=== PATIENT | female | born 1935 | race Caucasian/White ===

== ENCOUNTER → 2016-10-21 | Outpatient (REF) | payer MEDICARE, OTHER | LOC: M LABDRAW1 11:55 | PROVIDERS: ATTEND Internal Medicine Rheumatology | DX: E55.9 Vitamin D deficiency, unspecified (principal) ==

== ENCOUNTER → 2016-12-02 | Outpatient (CLI) | payer MEDICARE, OTHER ==
[~2016-12-02] MED LIST: ASPIRIN 81 MG CHEW TABLET As Ordered ONE; CLOPIDOGREL 75 MG TAB As Ordered ONE; MORPHINE 2 MG/ML 1ML SYRINGE As Ordered ONE; NITROGLYCERIN 0.4 MG SUBL TABLET As Ordered ONE; ONDANSETRON 4MG/2ML VIAL (J2405) As Ordered ONE
--- NOTE | 2016-12-02 15:47 | REP ---
WHOLE-BODY BONE SCAN: 12/02/2016. Clinical history: Ankle and rib pain for 2 months. Fell 4 months ago. Prior left knee replacement 2004. Known osteoarthritis. Technique: The patient received a bolus of 21.4 mCi technetium 99m MDP via an IV. Delayed whole body anterior and posterior scans with anterior and posterior oblique pelvic and chest images with lateral images of the calvarium and cervical region as well as knees and feet. Comparison: Chest x-ray 12/01/2016, left rib series 10/21/2016, left ankle 10/21/2016. There is an S-shaped scoliotic curvature dextroconvex in the mid thoracic spine, dextrorotatory in the lower thoracic/upper lumbar region. There are posterior element focal areas of uptake in multiple thoracic vertebral levels as well as the lumbar spine representing degenerative disc disease. There is increased uptake in the AC and glenohumeral joints in a symmetric fashion as well as the sternoclavicular joints. I do not see abnormal uptake in the sternum or sternomanubrial joint. Remainder of the visible clavicles were unremarkable. There is no anterior/posterior rib uptake, although there is uptake at multiple rib articular margins. Uptake seen in the cervical region representing degenerative change. The calvarium and skull base are grossly intact. There is uptake in the paranasal sinuses representing chronic sinus disease. Long bones without abnormal uptake except for the left ankle in the tibial plafond, although there was no correlation on the plain films for trauma or destructive lesion. The hips and SI joints without fracture. Pelvic ring intact. Kidneys show activity as does the bladder. Impression: 1. There is a pattern of uptake consistent with degenerative change in multiple joints and the spine including the right knee, left ankle, shoulders, sternoclavicular and AC joints. There is spine uptake in the cervical and thoracolumbar spine posterior elements from degenerative facet change and disc disease noted more anteriorly. 2. No compelling scintigraphic evidence for bony metastatic disease. No specific focal uptake in the ribs to suggest fracture or destructive lesion. Signed by Federico Gould MD 12/02/2016 05:32 P
== END ==
LOC: M RAD 10:33
PROVIDERS: ATTEND Internal Medicine Rheumatology
DX: M25.572 Pain in left ankle and joints of left foot (principal); R07.89 Other chest pain
CPT/HCPCS: 78306; A9503; J2405

== ENCOUNTER → 2017-05-03 | Outpatient (REF) | payer MEDICARE, OTHER ==
[2017-05-03 17:59] LABS: BASO % 0.4 % (0.0-1.0); EOS # 0.3 K/mm3 (0.0-0.50); EOS % 2.8 % (0.0-3.0); LARGE UNSTAINED CELL # 0.1 K/mm3 (0.0-0.4); LYMPH # 1.7 K/mm3 (1.5-4.5); LYMPH % 14.1 % (24.0-44.0); MEAN CORPUSCULAR HEMOGLOBIN 30.1 pg (27.0-33.0); MEAN CORPUSCULAR HGB CONC 33.9 g/dl (32.0-36.5); MEAN CORPUSCULAR VOLUME 88.8 fl (80.0-96.0); MONO # 0.6 K/mm3 (0.0-0.8); MONO % 4.9 % (0.0-5.0); NEUTROPHILS # 8.7 K/mm3 (1.8-7.7); NEUTROPHILS % 76.8 % (36.0-66.0); PLATELET COUNT, AUTOMATED 337 k/mm3 (150-450); RED CELL DISTRIBUTION WIDTH 13.4 % (11.5-14.5); WHITE BLOOD COUNT 11.4 K/mm3 (4.0-10.0)
[2017-05-03 18:42] LABS: ALBUMIN 3.3 GM/DL (3.2-5.2); ALBUMIN/GLOBULIN RATIO 0.83 (1.00-1.93); BILIRUBIN,TOTAL 0.5 MG/DL (0.2-1.0); CALCIUM LEVEL 9.3 MG/DL (8.8-10.2); CREATININE FOR GFR 1.01 MG/DL (0.55-1.02); GLOMERULAR FILTRATION RATE 56.3 (>39); POTASSIUM SERUM 3.6 MEQ/L (3.5-5.1); TOTAL PROTEIN 7.3 GM/DL (6.4-8.2)
== END ==
LOC: M LABDRAW1 16:08
PROVIDERS: ATTEND Internal Medicine Rheumatology
DX: M85.89 Other specified disorders of bone density and structure, multiple sites (principal); Z79.899 Other long term (current) drug therapy; E55.9 Vitamin D deficiency, unspecified

== ENCOUNTER 2017-08-20 16:38 | Emergency (ER) | payer MEDICARE, OTHER ==
[~2017-08-20] VITALS: Ht 167.6 cm; Wt 65.9 kg
[2017-08-20] MEDS ORDERED: Propanolol PO (16:54)
[2017-08-20] MEDS ORDERED: FLUTISP (16:54)
[2017-08-20] MEDS ORDERED: NEXI40CA PO (16:54)
[2017-08-20] MEDS ORDERED: ZOLO100T PO (16:54)
[2017-08-20] MEDS ORDERED: VITA200016 PO (16:54)
[2017-08-20] MEDS ORDERED: MAGN400C3 PO (16:54)
[2017-08-20] MEDS ORDERED: NEUR100C PO (16:54)
[2017-08-20] MEDS ORDERED: FISH100049 PO (16:54)
[2017-08-20] MEDS ORDERED: REST0.05 OU (16:54)
--- NOTE | 2017-08-20 17:30 | REPUSA ---
CT of the facial bones without contrast Clinical history: Pain, injury. Technique: Multiple axial CT images were obtained through the facial bones and paranasal sinuses util izing 3 mm axial slices without administration of contrast. Coronal and sagittal reconstructions were also obtained. Findings: The visualized paranasal sinuses are clear. The osteomeatal complexes are patent bilaterall y. The nasal septum is midline. The visualized mastoid air cells are clear. The osseous structures do not demonstrate any acute abnormalities. The superficial soft tissues are within normal limits. Impression: Unremarkable CT examination of the facial bones and paranasal sinuses.
[2017-08-20 17:54] VITALS: BP 149/71
== END 2017-08-20 17:55 | disposition home or self-care (01) ==
LOC: M ED 16:38
DX: S01.511A Laceration without foreign body of lip, initial encounter (principal); S00.81XA Abrasion of other part of head, initial encounter; S00.83XA Contusion of other part of head, initial encounter; W01.0XXA Fall on same level from slipping, tripping and stumbling without subsequent striking against object, initial encounter; Y92.481 Parking lot as the place of occurrence of the external cause; Y93.89 Activity, other specified; Y99.8 Other external cause status; I10 Essential (primary) hypertension; G25.0 Essential tremor; Z79.899 Other long term (current) drug therapy; Z88.5 Allergy status to narcotic agent; Z88.8 Allergy status to other drugs, medicaments and biological substances

== ENCOUNTER → 2017-08-22 | Outpatient (CLI) | payer MEDICARE, OTHER ==
[~2017-08-22] MED LIST changes: -ASPIRIN 81 MG CHEW TABLET As Ordered ONE; -CLOPIDOGREL 75 MG TAB As Ordered ONE; +FISH100049 PO; +FLUTISP; +MAGN400C3 PO; -MORPHINE 2 MG/ML 1ML SYRINGE As Ordered ONE; +NEUR100C PO; +NEXI40CA PO; -NITROGLYCERIN 0.4 MG SUBL TABLET As Ordered ONE; -ONDANSETRON 4MG/2ML VIAL (J2405) As Ordered ONE; +Propanolol PO; +REST0.05 OU; +VITA200016 PO; +ZOLO100T PO
--- NOTE | 2017-08-22 11:08 | REPMRS ---
Patient History The patient states she has not had a clinical breast exam in over a year. Family history of prostate cancer in brother at age 50 or over. Digital Woman Screen Mammo: August 22, 2017 - Exam #: [id number] Bilateral CC and MLO view(s) were taken. Technologist: Lexus Vera, Technologist Prior study comparison: July 07, 2016, digital woman screen mammo performed at [facility] to [facility]. April 29, 2015, digital woman screen mammo performed at [facility] to [facility]. FINDINGS: There are scattered fibroglandular densities. There has been no change in the appearance of the mammogram from the prior studies. There is a mild amount of residual fibroglandular tissue which is fairly symmetric. There is no interval development of dominant mass, architectural distortion, or clustered microcalcification suggestive of malignancy. ASSESSMENT: BI-RADS/ACR category 1 mammogram. Negative. Recommendation Routine screening mammogram in 1 year (for women over age 40). This mammogram was interpreted with the aid of an FDA-approved computer-aided dectection system. Electronically Signed By: Sav Negrete MD 08/22/17 [id number]
== END ==
LOC: M WHC 10:35
PROVIDERS: ATTEND Family Medicine
DX: Z12.31 Encounter for screening mammogram for malignant neoplasm of breast (principal)

== ENCOUNTER 2017-10-02 10:02 | Emergency (ER) | payer MEDICARE, OTHER ==
[2017-10-02 11:18] LABS: BASO # 0.1 10^3/uL (0.0-0.2); BASO % 0.3 % (0.0-1.0); IMMATURE GRANULOCYTE # 0.2 10^3/uL (0-0); IMMATURE GRANULOCYTE % 0.9 % (0-0); LYMPH # 0.9 10^3/uL (1.5-4.5); MEAN CORPUSCULAR HEMOGLOBIN 30.4 pg (27.0-33.0); MEAN CORPUSCULAR HGB CONC 35.1 g/dl (32.0-36.5); MEAN CORPUSCULAR VOLUME 86.4 fl (80.0-96.0); MONO # 1.4 10^3/uL (0.0-0.8); MONO % 6.1 % (0.0-5.0); NEUTROPHILS % 88.7 % (36.0-66.0); PLATELET COUNT, AUTOMATED 243 10^3/uL (150-450); RED CELL DISTRIBUTION WIDTH 13.5 % (11.5-14.5); WHITE BLOOD COUNT 22.5 10^3/uL (4.0-10.0)
[2017-10-02 11:28] LABS: INR 1.03
[2017-10-02 11:38] LABS: ANION GAP 9 MEQ/L (8-16); BLOOD UREA NITROGEN 34 MG/DL (7-18); CALCIUM LEVEL 9.2 MG/DL (8.8-10.2); CARBON DIOXIDE LEVEL 29 MEQ/L (21-32); CHLORIDE LEVEL 99 MEQ/L (98-107); CREATININE FOR GFR 1.17 MG/DL (0.55-1.02); GLOMERULAR FILTRATION RATE 47.5 (>39); GLUCOSE, FASTING 116 MG/DL (83-110); POTASSIUM SERUM 3.4 MEQ/L (3.5-5.1); SODIUM LEVEL 137 MEQ/L (136-145)
[2017-10-02] MEDS: POTASSIUM CHLORIDE 10 MEQ SR TABLET PO (12:41)
[2017-10-02 12:50] LABS: FREE T4 1.05 NG/DL (0.76-1.46); MAGNESIUM LEVEL 2.3 MG/DL (1.8-2.4); PHOSPHORUS LEVEL 2.9 MG/DL (2.5-4.9)
[2017-10-02 13:33] LABS: KETONE, URINE AUTO RFX TRACE mg/dL (NEGATIVE); MUCUS, URINE RFX SMALL (NEGATIVE); RBC, URINE AUTO RFX 19 /HPF (0-3); SPECIFIC GRAVITY UR AUTO RFX 1.015 (1.002-1.035); SQUAM EPITHELIAL CELL UR AURFX 0 /HPF (0-6); TRANSITIONAL EPITHELIAL AU RFX 1 /HPF
[2017-10-02 13:34] LABS: LEUKOCYTE ESTERASE UR AUTO RFX 3+ (NEGATIVE); NITRITE, URINE AUTO RFX POSITIVE (NEGATIVE); WBC, URINE AUTO RFX TNTC /HPF (0-3)
[2017-10-02] MEDS: CEFTRIAXONE SOD 1 GM in APPROPRIATE DILUENT 1 EA IV (14:38)
== END 2017-10-02 15:11 | disposition home or self-care (01) ==
LOC: M ED 10:02
DX: N39.0 Urinary tract infection, site not specified (principal); I10 Essential (primary) hypertension; G62.9 Polyneuropathy, unspecified; K21.9 Gastro-esophageal reflux disease without esophagitis; R07.81 Pleurodynia
CPT/HCPCS: 71010

== ENCOUNTER 2017-10-03 19:18 | Emergency (ER) | payer MEDICARE, OTHER ==
[2017-10-03] MEDS: NS 500 ML IV ×2 (20:00→21:00)
[2017-10-03 20:29] LABS: BASO % 0.3 % (0.0-1.0); EOS % 0.1 % (0.0-3.0); IMMATURE GRANULOCYTE # 0.1 10^3/uL (0-0); IMMATURE GRANULOCYTE % 0.4 % (0-0); LYMPH # 0.9 10^3/uL (1.5-4.5); MEAN CORPUSCULAR HEMOGLOBIN 29.7 pg (27.0-33.0); MEAN CORPUSCULAR HGB CONC 34.4 g/dl (32.0-36.5); MEAN CORPUSCULAR VOLUME 86.5 fl (80.0-96.0); MONO # 1.3 10^3/uL (0.0-0.8); MONO % 9.1 % (0.0-5.0); NEUTROPHILS # 12.1 10^3/uL (1.8-7.7); NEUTROPHILS % 84.1 % (36.0-66.0); PLATELET COUNT, AUTOMATED 248 10^3/uL (150-450); RED CELL DISTRIBUTION WIDTH 13.5 % (11.5-14.5); WHITE BLOOD COUNT 14.4 10^3/uL (4.0-10.0)
[2017-10-03 20:55] LABS: ANION GAP 5 MEQ/L (8-16); BLOOD UREA NITROGEN 35 MG/DL (7-18); CALCIUM LEVEL 8.8 MG/DL (8.8-10.2); CARBON DIOXIDE LEVEL 32 MEQ/L (21-32); CHLORIDE LEVEL 97 MEQ/L (98-107); CREATININE FOR GFR 1.23 MG/DL (0.55-1.02); GLOMERULAR FILTRATION RATE 44.8 (>39); GLUCOSE, FASTING 122 MG/DL (83-110); MAGNESIUM LEVEL 2.2 MG/DL (1.8-2.4); SODIUM LEVEL 134 MEQ/L (136-145); T UPTAKE 34 % (30-39); THYROXINE (T4) 7.6 UG/DL (4.5-12.0)
[2017-10-03] MEDS: POTASSIUM CHLORIDE 10 MEQ SR TABLET PO (23:38)
== END 2017-10-04 00:42 | disposition home or self-care (01) ==
LOC: M ED 10-04 00:42
DX: E86.0 Dehydration (principal); N39.0 Urinary tract infection, site not specified; I10 Essential (primary) hypertension; R26.2 Difficulty in walking, not elsewhere classified; M19.90 Unspecified osteoarthritis, unspecified site; G62.9 Polyneuropathy, unspecified; K21.9 Gastro-esophageal reflux disease without esophagitis; Z79.899 Other long term (current) drug therapy; Z79.2 Long term (current) use of antibiotics; Z79.51 Long term (current) use of inhaled steroids; Z88.8 Allergy status to other drugs, medicaments and biological substances; Z88.5 Allergy status to narcotic agent
CPT/HCPCS: 82550

== ENCOUNTER → 2017-10-25 | Outpatient (REF) | payer MEDICARE, OTHER | LOC: M LAB REF 12:56 | DX: N10 Acute pyelonephritis (principal) | CPT/HCPCS: 87086 ==

== ENCOUNTER → 2017-11-23 | Outpatient (REF) | payer MEDICARE, OTHER | LOC: M LAB REF 15:12 | DX: N39.0 Urinary tract infection, site not specified (principal) | CPT/HCPCS: 87186 ==

== ENCOUNTER → 2019-03-16 | Outpatient (CLI) | payer MEDICARE, OTHER ==
[~2019-03-16] MED LIST changes: +HYDR25TAB; +KEFL500C17 PO
--- NOTE | 2019-03-16 11:39 | REPMRS ---
Patient History The patient states she has not had a clinical breast exam in over a year. Family history of prostate cancer(twice) at age 50 or over in brother. 3D TOMOSYNTHESIS WAS PERFORMED. Digital Woman Screen Mammo: March 16, 2019 - Exam #: [id number] Bilateral CC and MLO view(s) were taken. Technologist: Lexus Vera, Technologist Prior study comparison: August 22, 2017, digital woman screen mammo performed at [facility]. July 07, 2016, digital woman screen mammo performed at [facility]. FINDINGS: The breast tissue is heterogeneously dense. This may lower the sensitivity of mammography. There has been no change in the appearance of the mammogram from the prior studies. There is a moderate amount of residual fibroglandular tissue which is fairly symmetric. There is no interval development of dominant mass, areas of architectural distortion, or clustered microcalcification typical of malignancy. Assessment: BI-RADS/ACR category 1 mammogram. Negative Mammogram. Recommendation Routine screening mammogram in 1 year (for women over age 40). This mammogram was interpreted with the aid of an FDA-approved computer-aided dectection system. Electronically Signed By: Sav Negrete MD 03/16/19 [id number]
== END ==
LOC: M WHC 08:59
PROVIDERS: ATTEND Family Medicine
DX: Z12.31 Encounter for screening mammogram for malignant neoplasm of breast (principal)

== ENCOUNTER → 2019-04-10 | Outpatient (CLI) | payer MEDICARE, OTHER ==
[~2019-04-10] MED LIST changes: +AMOX500C PO; +DORZ2SOL5 OU; +DULO1CAP5 PO; +FERR325T3 PO; +FISH1000 PO; +HYDR-3713 PO; -HYDR25TAB; +HYDR25TAB PO; +MAGN400C2 PO; +MULTCAP PO; +MYRB50TA PO; +NAPR250T4 PO; +POTA1TAB23 PO; +PREV1.1G TEETH; +RANI150T14 PO; +ROPI0.5T PO; +SOLI5TAB PO; +ULTR50TA8 PO; +XARE10TA PO
== END ==
LOC: M PT 10:07
PROVIDERS: ATTEND Orthopaedic Surgery
DX: M17.11 Unilateral primary osteoarthritis, right knee (principal)

== ENCOUNTER → 2019-04-20 | Outpatient (CLI) | payer MEDICARE, OTHER ==
[~2019-04-20] MED LIST changes: -DORZ2SOL5 OU; -FERR325T3 PO; -HYDR-3713 PO; -POTA1TAB23 PO; -RANI150T14 PO; -SOLI5TAB PO; -ULTR50TA8 PO; -XARE10TA PO
[2019-04-20 08:53] LABS: HEMATOCRIT 39.6 % (36.0-47.0); HEMOGLOBIN 13.2 g/dl (12.0-15.5); MEAN CORPUSCULAR HEMOGLOBIN 30.3 pg (27.0-33.0); MEAN CORPUSCULAR HGB CONC 33.3 g/dl (32.0-36.5); MEAN CORPUSCULAR VOLUME 90.8 fl (80.0-96.0); PLATELET COUNT, AUTOMATED 255 10^3/uL (150-450); RED BLOOD COUNT 4.36 10^6/uL (4.00-5.40); WHITE BLOOD COUNT 6.3 10^3/uL (4.0-10.0)
[2019-04-20 09:03] LABS: INR 0.99; PROTHROMBIN TIME 12.8 SECONDS (11.8-14.0)
[2019-04-20 09:14] LABS: ERYTHROCYTE SEDIMENTATION RATE 22 mm/hr (0-30)
[2019-04-20 09:20] LABS: ALBUMIN 3.8 GM/DL (3.2-5.2); BILIRUBIN,TOTAL 0.7 MG/DL (0.2-1.0); CALCIUM LEVEL 9.4 MG/DL (8.8-10.2); CREATININE FOR GFR 1.03 MG/DL (0.55-1.30); GLOMERULAR FILTRATION RATE 54.7 (>32); POTASSIUM SERUM 3.5 MEQ/L (3.5-5.1); TOTAL PROTEIN 7.2 GM/DL (6.4-8.2)
--- NOTE | 2019-04-20 10:11 | ECGEPIP ---
[facility] Test Date: 2019-04-20 Pat Name: YAMILETH ANSARI Department: Room: - Gender: Female [employer]: [facility] [place] : 1935 Requested By: S[place] [facility] [place]: [id number] Reading MD: Lana Jimenez Measurements Intervals [place] Rate: 67 P: 64 VA: 210 QRS: 68 QRSD: 94 T: 64 QT: 383 QTc: 407 Interpretive Statements SINUS RHYTHM WITH FIRST DEGREE AV BLOCK NSSTTWA STABLE C/W 10/02/17 Electronically Signed on 04-20-2019 10:11:19 EDT by Lana Jimenez
--- NOTE | 2019-04-20 11:15 | REP ---
CHEST X-RAY: Two views. HISTORY: Preop. COMPARISON CHEST X-RAY: October 02, 2017. FINDINGS: There is a moderate S-shaped thoracolumbar rotoscoliotic curve unchanged. The lungs are well inflated and clear. The pleural angles are sharp. Cardiomediastinal silhouette is unremarkable. IMPRESSION: Moderate thoracolumbar scoliosis. Otherwise no acute disease. Electronically Signed by Anupam Mahoney MD 04/20/2019 12:38 P
== END ==
LOC: M LAB 08:17
PROVIDERS: ATTEND Orthopaedic Surgery
DX: Z01.818 Encounter for other preprocedural examination (principal); M17.11 Unilateral primary osteoarthritis, right knee; I44.0 Atrioventricular block, first degree; M41.85 Other forms of scoliosis, thoracolumbar region; G62.9 Polyneuropathy, unspecified; K21.9 Gastro-esophageal reflux disease without esophagitis; R01.1 Cardiac murmur, unspecified; G25.0 Essential tremor

== ENCOUNTER → 2019-05-14 | Outpatient (CLI) | payer MEDICARE, OTHER ==
[~2019-05-14] MED LIST changes: +FERR325T3 PO; +HYDR-3713 PO; +RANI150T14 PO; +ULTR50TA8 PO; +XARE10TA PO
[2019-05-14 11:00] LABS: HEMATOCRIT 32.2 % (36.0-47.0); HEMOGLOBIN 10.6 g/dl (12.0-15.5); MEAN CORPUSCULAR HEMOGLOBIN 29.9 pg (27.0-33.0); MEAN CORPUSCULAR HGB CONC 32.9 g/dl (32.0-36.5); MEAN CORPUSCULAR VOLUME 90.7 fl (80.0-96.0); PLATELET COUNT, AUTOMATED 648 10^3/uL (150-450); RED BLOOD COUNT 3.55 10^6/uL (4.00-5.40); WHITE BLOOD COUNT 13.8 10^3/uL (4.0-10.0)
== END ==
LOC: M LAB 10:19
PROVIDERS: ATTEND Internal Medicine
DX: Z96.651 Presence of right artificial knee joint (principal)

== ENCOUNTER 2019-06-07 09:45 | Outpatient (RCR) | payer MEDICARE, OTHER | END 2019-06-09 | LOC: M PT 09:45 | PROVIDERS: ATTEND Orthopaedic Surgery | DX: Z47.1 Aftercare following joint replacement surgery (principal); Z96.651 Presence of right artificial knee joint ==

== ENCOUNTER 2019-07-05 16:00 | Outpatient (RCR) | payer MEDICARE, OTHER | END 2019-07-09 | LOC: M PT 16:00 | PROVIDERS: ATTEND Orthopaedic Surgery | DX: Z47.1 Aftercare following joint replacement surgery (principal); Z96.651 Presence of right artificial knee joint ==

== ENCOUNTER 2019-07-12 15:12 | Emergency (ER) | payer MEDICARE, OTHER ==
[~2019-07-12] VITALS: Ht 170.2 cm; Wt 61.4 kg
[2019-07-12 15:14] VITALS: BP 151/76
[2019-07-12] MEDS ORDERED: DORZ2SOL5 OU (15:42)
[2019-07-12] MEDS ORDERED: POTA1TAB23 PO (15:42)
[2019-07-12] MEDS ORDERED: SOLI5TAB PO (15:42)
== END 2019-07-12 16:34 | disposition home or self-care (01) ==
LOC: M ED 15:12
DX: S09.90XA Unspecified injury of head, initial encounter (principal); W18.39XA Other fall on same level, initial encounter; Y92.018 Other place in single-family (private) house as the place of occurrence of the external cause; K21.9 Gastro-esophageal reflux disease without esophagitis; F33.9 Major depressive disorder, recurrent, unspecified; Z79.899 Other long term (current) drug therapy; Z88.5 Allergy status to narcotic agent; Z88.8 Allergy status to other drugs, medicaments and biological substances

== ENCOUNTER 2019-08-08 15:13 | Outpatient (RCR) | payer MEDICARE, OTHER ==
[~2019-08-08 15:13] MED LIST changes: +DORZ2SOL5 OU; +POTA1TAB23 PO; +SOLI5TAB PO
== END 2019-08-09 ==
LOC: M PT 15:13
PROVIDERS: ATTEND Orthopaedic Surgery
DX: M25.571 Pain in right ankle and joints of right foot (principal); Z96.651 Presence of right artificial knee joint

== ENCOUNTER 2019-09-05 13:41 | Outpatient (RCR) | payer MEDICARE, OTHER | END 2019-09-08 | LOC: M PT 13:41 | PROVIDERS: ATTEND Orthopaedic Surgery | DX: Z47.89 Encounter for other orthopedic aftercare (principal) ==

== ENCOUNTER 2019-09-13 15:17 | Outpatient (RCR) | payer MEDICARE, OTHER | END 2019-10-09 | LOC: M PT 15:17 | PROVIDERS: ATTEND Orthopaedic Surgery | DX: Z51.89 Encounter for other specified aftercare (principal); Z96.651 Presence of right artificial knee joint; M25.571 Pain in right ankle and joints of right foot ==

== ENCOUNTER → 2019-10-22 | Outpatient (REF) | payer MEDICARE, OTHER ==
[2019-10-22 14:37] LABS: FERRITIN 222 NG/ML (8-252)
[2019-10-22 14:44] LABS: VITAMIN B12 LEVEL 815 PG/ML (247-911)
== END ==
LOC: M LAB REF 13:54
PROVIDERS: ATTEND Family Medicine
DX: D64.9 Anemia, unspecified (principal)

== ENCOUNTER → 2019-12-31 | Outpatient (REF) | payer MEDICARE, OTHER ==
[~2019-12-31] MED LIST changes: -ROPI0.5T PO; +ROPI0.5T3 PO
== END ==
LOC: M LAB REF 16:45
PROVIDERS: ATTEND Family Medicine
DX: N39.0 Urinary tract infection, site not specified (principal)

== ENCOUNTER → 2020-01-08 | Outpatient (RCR) | payer MEDICARE, OTHER | LOC: M PT 12-13 09:30 | PROVIDERS: ATTEND Physician Assistant Surgical | DX: Z51.89 Encounter for other specified aftercare (principal); R53.1 Weakness ==

== ENCOUNTER 2020-02-05 10:42 | Outpatient (RCR) | payer MEDICARE, OTHER | END 2020-02-07 | LOC: M PT 10:42 | PROVIDERS: ATTEND Physician Assistant Surgical | DX: Z47.1 Aftercare following joint replacement surgery (principal); Z96.651 Presence of right artificial knee joint ==

== ENCOUNTER 2020-02-12 10:59 | Outpatient (RCR) | payer MEDICARE, OTHER ==
[2020-03-10] MEDS ORDERED: FAMO20TA PO (08:32)
[2020-03-10] MEDS ORDERED: MELA3TAB63 PO (08:32)
[2020-03-10] MEDS ORDERED: META0.52 PO (08:37)
== END 2020-03-09 ==
LOC: M PT 10:59
PROVIDERS: ATTEND Physician Assistant Surgical
DX: Z47.1 Aftercare following joint replacement surgery (principal); Z96.651 Presence of right artificial knee joint

== ENCOUNTER → 2020-02-14 | Outpatient (CLI) | payer MEDICARE, OTHER ==
[2020-02-14 12:04] LABS: BASO # 0.1 10^3/uL (0.0-0.2); BASO % 0.7 % (0.0-1.0); EOS # 0.1 10^3/uL (0.0-0.5); EOS % 1.9 % (0.0-3.0); HEMATOCRIT 41.4 % (36.0-47.0); HEMOGLOBIN 13.5 g/dl (12.0-15.5); LYMPH # 1.7 10^3/uL (1.5-5.0); MEAN CORPUSCULAR HEMOGLOBIN 30.4 pg (27.0-33.0); MEAN CORPUSCULAR HGB CONC 32.6 g/dl (32.0-36.5); MEAN CORPUSCULAR VOLUME 93.2 fl (80.0-96.0); MONO # 0.6 10^3/uL (0.0-0.8); MONO % 8.3 % (0.0-5.0); NEUTROPHILS # 4.3 10^3/uL (1.5-8.5); NEUTROPHILS % 63.8 % (36.0-66.0); PLATELET COUNT, AUTOMATED 292 10^3/uL (150-450); RED BLOOD COUNT 4.44 10^6/uL (4.00-5.40); WHITE BLOOD COUNT 6.7 10^3/uL (4.0-10.0)
[2020-02-14 13:00] LABS: ALBUMIN 3.8 GM/DL (3.2-5.2); ALT/SGPT 16 U/L (12-78); BILIRUBIN,TOTAL 0.7 MG/DL (0.2-1.0); BLOOD UREA NITROGEN 21 MG/DL (7-18); CALCIUM LEVEL 9.9 MG/DL (8.8-10.2); CARBON DIOXIDE LEVEL 34 MEQ/L (21-32); CHLORIDE LEVEL 104 MEQ/L (98-107); CREATININE FOR GFR 0.93 MG/DL (0.55-1.30); GLOMERULAR FILTRATION RATE > 60.0 (>32); GLUCOSE, FASTING 100 MG/DL (70-100); POTASSIUM SERUM 3.8 MEQ/L (3.5-5.1); SODIUM LEVEL 142 MEQ/L (136-145); TOTAL PROTEIN 7.3 GM/DL (6.4-8.2)
== END ==
LOC: M LAB 11:06
PROVIDERS: ATTEND Physician Assistant Medical
DX: R42 Dizziness and giddiness (principal); R25.1 Tremor, unspecified

== ENCOUNTER → 2020-03-05 | Outpatient (CLI) | payer MEDICARE, OTHER ==
[~2020-03-05] MED LIST changes: +FAMO20TA PO; +MELA3TAB63 PO; +META0.52 PO
[2020-03-05 13:08] LABS: PLATELET COUNT, AUTOMATED 269 10^3/uL (150-450)
[2020-03-05 13:22] LABS: INR 1.04; PARTIAL THROMBOPLASTIN TIME 24.6 SECONDS (25.0-38.4); PROTHROMBIN TIME 13.3 SECONDS (11.8-14.0)
== END ==
LOC: M LAB 12:39
PROVIDERS: ATTEND Physician Assistant
DX: Z01.812 Encounter for preprocedural laboratory examination (principal); M53.3 Sacrococcygeal disorders, not elsewhere classified

== ENCOUNTER → 2020-03-07 | Outpatient (CLI) | payer MEDICARE, OTHER | LOC: M LABSMTC 11:02 | PROVIDERS: ATTEND Physical Medicine & Rehabilitation | DX: Z01.818 Encounter for other preprocedural examination (principal); Z11.59 Encounter for screening for other viral diseases ==

== ENCOUNTER → 2020-03-14 | Outpatient (CLI) | payer MEDICARE, OTHER | LOC: M LABSMTC 10:27 | PROVIDERS: ATTEND Anesthesiology | DX: Z01.818 Encounter for other preprocedural examination (principal); Z11.59 Encounter for screening for other viral diseases | CPT/HCPCS: C9803; U0003 ==

== ENCOUNTER 2020-03-17 10:21 | Day surgery (SDC) | payer MEDICARE, OTHER ==
[~2020-03-17] VITALS: Ht 170.2 cm; Wt 61.2 kg
[2020-03-17] MEDS: NS 1,000 ML IV SCH ×2 (11:42→11:43)
[2020-03-17] MEDS ORDERED: propofoL 200 MG/20 ML VIAL As Ordered ONE ×2 (11:45→12:45)
[2020-03-17] MEDS ORDERED: LIDOCAINE 2% 100MG/5ML SDV (FOR ANES.) As Ordered ONE (11:45)
--- NOTE | 2020-03-17 13:01 | ROOR ---
Patient Name: Mckinley Domingo Procedure Date: 03/17/2020 12:08 PM Date of : 1935 Age: 84 Room: [facility] Gender: Female Note Status: Finalized Procedure: Total Colonoscopy to Cecum + Cold Snare Polypectomy + biopsies Indications: Last colonoscopy: 2012, Clinically significant diarrhea of unexplained origin Providers: Graham Dai MD Referring MD: Saul Huddleston MD Requesting Provider: Medicines: Monitored Anesthesia Care Complications: No immediate complications. Procedure: Pre-Anesthesia Assessment: - The heart rate, respiratory rate, oxygen saturations, blood pressure, adequacy of pulmonary ventilation, and response to care were monitored throughout the procedure. The Colonoscope was introduced through the anus and advanced to the cecum, identified by appendiceal orifice and ileocecal valve. The colonoscopy was performed without difficulty. The patient tolerated the procedure well. The quality of the bowel preparation was fair. Findings: The perianal and digital rectal examinations were normal. Non-bleeding internal hemorrhoids were found during retroflexion. The hemorrhoids were small and Grade I (internal hemorrhoids that do not prolapse). Multiple small-mouthed diverticula were found in the recto-sigmoid colon, sigmoid colon and descending colon. A small polyp was found in the hepatic flexure. The polyp was sessile. The polyp was removed with a cold snare. Resection and retrieval were complete. A large polyp was found in the cecum. The polyp was sessile. The polyp was removed with a cold snare. Polyp resection was incomplete. The resected tissue was retrieved. Biopsies for histology were taken with a cold forceps from the ascending colon, transverse colon, descending colon and rectosigmoid colon for evaluation of microscopic colitis. The exam was otherwise without abnormality on direct and retroflexion views. Impression: - Preparation of the colon was fair. - Non-bleeding internal hemorrhoids. - Diverticulosis in the recto-sigmoid colon, in the sigmoid colon and in the descending colon. - One small polyp at the hepatic flexure, removed with a cold snare. Resected and retrieved. - One large polyp in the cecum, removed with a cold snare. Incomplete resection. Resected tissue retrieved. - The examination was otherwise normal on direct and retroflexion views. - Biopsies were taken with a cold forceps from the ascending colon, transverse colon, descending colon and rectosigmoid colon for evaluation of microscopic colitis. - The exam was otherwise normal to the cecum. Recommendation: - Patient has a contact number available for emergencies. The signs and symptoms of potential delayed complications were discussed with the patient. Return to normal activities tomorrow. Written discharge instructions were provided to the patient. - High fiber diet. - Discharge patient to home. - Continue present medications. - Await pathology results. - Telephone GI clinic for pathology results in 1 week. - Repeat colonoscopy for surveillance based on pathology results. - The findings and recommendations were discussed with the patient. Graham Dai MD Graham Dai MD 03/17/2020 1:01:18 PM Electronically signed by Graham Dia MD Number of Addenda: 0 Note Initiated On: 03/17/2020 12:08 PM Estimated Blood Loss: Estimated blood loss: none.
[2020-03-17 13:20] VITALS: BP 102/60
== END 2020-03-17 13:33 | disposition home or self-care (01) ==
LOC: M OPP 10:21
PROVIDERS: ATTEND Internal Medicine Gastroenterology
DX: D12.3 Benign neoplasm of transverse colon (principal); D12.0 Benign neoplasm of cecum; K57.30 Diverticulosis of large intestine without perforation or abscess without bleeding; K64.0 First degree hemorrhoids; R19.7 Diarrhea, unspecified; I10 Essential (primary) hypertension; Z86.010 Personal history of colon polyps; Z79.899 Other long term (current) drug therapy; Z88.5 Allergy status to narcotic agent; Z88.6 Allergy status to analgesic agent; Z88.8 Allergy status to other drugs, medicaments and biological substances

== ENCOUNTER → 2020-08-12 | Outpatient (CLI) | payer MEDICARE, OTHER ==
[~2020-08-12] MED LIST changes: +CYMB1CAP5 PO; +D31000TA2 PO; +ROBA750T4 PO; +VITA100T59 PO
--- NOTE | 2020-08-13 09:30 | REPMRS ---
Patient History The patient states she has not had a clinical breast exam in over a year. Family history of unknown cancer at age 50 or over and prostate cancer at age 50 or over in brother. 3D TOMOSYNTHESIS WAS PERFORMED. [facility] lifetime risk for breast cancer is 0.9%. [place]para breast density b. Digital Woman Screen Mammo: August 12, 2020 - Exam #: [id number] Bilateral CC and MLO view(s) were taken. Technologist: Monserrat Herrera, Technologist Prior study comparison: March 16, 2019, bilateral digital woman screen mammo performed at [facility]. August 22, 2017, digital woman screen mammo performed at [facility]. FINDINGS: The breast tissue is heterogeneously dense. This may lower the sensitivity of mammography. There has been no change in the appearance of the mammogram from the prior studies. There is a moderate amount of residual fibroglandular tissue which is fairly symmetric. There is no interval development of dominant mass, areas of architectural distortion, or clustered microcalcification typical of malignancy. Assessment: BI-RADS/ACR category 1 mammogram. Negative Mammogram. Recommendation Routine screening mammogram in 1 year (for women over age 40). This mammogram was interpreted with the aid of an FDA-approved computer-aided dectection system. Electronically Signed By: Sav Negrete MD 08/13/20 [id number]
== END ==
LOC: M WHC 15:10
PROVIDERS: ATTEND Family Medicine
DX: Z12.31 Encounter for screening mammogram for malignant neoplasm of breast (principal); M53.3 Sacrococcygeal disorders, not elsewhere classified; Z80.8 Family history of malignant neoplasm of other organs or systems; Z80.42 Family history of malignant neoplasm of prostate

== ENCOUNTER → 2020-08-12 | Outpatient (CLI) | payer MEDICARE, OTHER ==
[2020-08-12 16:38] LABS: PLATELET COUNT, AUTOMATED 265 10^3/uL (150-450)
[2020-08-12 16:49] LABS: INR 0.93; PROTHROMBIN TIME 12.7 SECONDS (12.5-14.3)
[2020-08-12 16:50] LABS: PARTIAL THROMBOPLASTIN TIME 24.1 SECONDS (24.2-38.5)
[2020-08-12 17:14] LABS: COLLAGEN EPINEPHRINE 75 SECONDS (74-162)
== END ==
LOC: M LAB 16:05
PROVIDERS: ATTEND Physician Assistant
DX: M53.3 Sacrococcygeal disorders, not elsewhere classified (principal)

== ENCOUNTER → 2020-08-16 | Outpatient (CLI) | payer MEDICARE, OTHER | LOC: M LABSMTC 09:02 | PROVIDERS: ATTEND Anesthesiology | DX: Z01.818 Encounter for other preprocedural examination (principal); Z20.828 Contact with and (suspected) exposure to other viral communicable diseases | CPT/HCPCS: C9803; U0003 ==

== ENCOUNTER 2020-08-21 05:58 | Inpatient (IN) | payer MEDICARE, OTHER ==
[~2020-08-21] VITALS: Ht 170.2 cm; Wt 59.0 kg
[2020-08-21] VITALS (7 sets, daily range): BP systolic 102–126; BP diastolic 57–74
[2020-08-21] MEDS ORDERED: ALVIMOPAN 12 MG CAPSULE (ENTEREG) PO ONE (06:00)
[2020-08-21] MEDS ORDERED: cefoTEtan DISODIUM 2 GM in D5W MINI-BAG PLUS 50 ML IV ONE (06:00)
[2020-08-21] MEDS ORDERED: LR 500 ML IV ONE (06:00)
[2020-08-21] MEDS ORDERED: METR-265 (06:50)
[2020-08-21] MEDS ORDERED: NEOM500T (06:50)
[2020-08-21] MEDS ORDERED: SUPRSOL2 (06:50)
[2020-08-21] MEDS ORDERED: LR 1,000 ML IV SCH ×2 (07:00→13:00)
--- NOTE | 2020-08-21 07:00 | HPE ---
DATE OF ADMISSION: 08/21/2020 ADMITTING DIAGNOSIS: Villous adenoma of the cecum. HISTORY OF PRESENT ILLNESS: The patient is an 84-year-old woman who had undergone a colonoscopy on the March by Dr. Dai. She on prior colonoscopy had been found to have an adenoma in the cecum back in 2012. On her more recent study there was a cecal polyp. She was found to have a polyp in the cecum that was described as being large. Biopsies revealed villous adenoma. The cecal polyp was not endoscopically resectable. The patient was seen in April. The patient and I discussed the need for a resection of this large polyp. Because she was initially seen during the period when the computer system was down, she followed up on the 26 of May at which time more complete records were available. She elected to defer the surgery temporarily to address some other issues and ensure that she would have a family member available during her recovery. She is now being admitted on the morning of the 21 of August to undergo a robotic-assisted laparoscopic right hemicolectomy. ALLERGIES: The patient reports allergies to aspirin and Gabapentin. CURRENT MEDICATIONS: 1. Dorzolamide/Timolol 22.3-6.8 mg per mL eyedrops, one drop in each eye twice daily. 2. Duloxetine 30 mg one tab twice daily. 3. Famotidine 20 mg one tablet twice daily. 4. Fluticasone two sprays to each nostril daily. 5. Hydrochlorothiazide 25 mg p.o. daily. 6. Magnesium Oxide 400 mg p.o. daily. 7. Methocarbamol 500 mg tablets one to three tablets daily as needed. 8. Multivitamin tablet daily. 9. Myrbetriq 50 mg one tablet daily. 10. Neurontin 100 mg two tablets t.i.d. 11. [place]-3 fatty acids 1200 mg three times daily. 12. Potassium chloride 10 mEq once daily. 13. Prevident to teeth as directed. 14. Restasis eyedrops twice daily. 15. Vitamin B12 tablets. 16. Vitamin D3 tablets. MEDICAL HISTORY: Significant for: 1. Hypertension. 2. She has a history of a heart murmur. 3. She has had some gastroesophageal reflux. 4. She has tremors. 5. She has a history of anxiety. 6. Glaucoma. 7. Arthritis. 8. She does have some hearing loss. 9. She has had a past history of diverticulitis. PAST SURGICAL HISTORY: Significant for: 1. Several endoscopic procedures. 2. Hysterectomy. 3. Several knee arthroscopies. 4. Knee replacement. 5. Cholecystectomy. 6. Inner ear surgery. FAMILY HISTORY: Alzheimer's disease, heart disease and thyroid disease. Her father succumbed to a brain tumor and her mother succumbed to heart disease and dementia. SOCIAL HISTORY: Patient is a nonsmoker and has alcohol rarely. REVIEW OF SYSTEMS: No history of fevers, chills or significant change in weight. She denies any visual problems. She has no seizure of seizure or stroke. She denies any history of cough, wheezing or sputum production. She has had some constipation but denies any rectal bleeding. She denies any dysuria or hematuria. She has no significant bone or joint issues at this time. There is no history of DVT or pulmonary embolus. PHYSICAL EXAMINATION: VITAL SIGNS: Patients weight is recorded as 61 kg with a height of 61 inches, giving her a BMI of approximately 26. GENERAL: She is alert and oriented. HEENT: Sclera are anicteric. Mucous membranes are moist. NECK: Supple without mass or bruit. HEART: Regular rate and rhythm. LUNGS: Clear to auscultation bilaterally. ABDOMEN: Thin and flat without any abdominal tenderness. There is no palpable mass. SKIN: Warm and dry. IMPRESSION: Patient is an 84-year-old woman with a villous adenoma of the cecum. Other diagnoses include: Hyperlipidemia, gastroesophageal reflux disease, hypertension, anxiety, low back pain, tremor and restless leg syndrome, idiopathic neuropathy. PLAN: The patient is being admitted on the morning of the 21 of August to undergo a robotic-assisted laparoscopic right hemicolectomy. The patient is to perform a full mechanical and antibiotic bowel preparation the day before surgery with Suprep, Neomycin and Flagyl. She will receive a dose of Cefotetan preoperatively. She will also be started on Entereg preoperatively. She was counseled regarding the need for the surgery to remove this non-endoscopically resectable polyp. The risks of the procedure include but are not limited to bleeding, infection, scarring, adverse drug reaction, need for further surgery, injury of internal organ, anastomotic leak, and hernia. She had an opportunity to ask questions. She desires to proceed with the surgery. MARY JANE
[2020-08-21] MEDS ORDERED: BUPIVACAINE HCL 0.25% 30ML VIAL As Ordered ONE (07:19)
[2020-08-21] MEDS ORDERED: SCOPOLAMINE 1MG TRANSDERMAL PATCH TOP ONE (07:30)
[2020-08-21] MEDS ORDERED: PHENYLephrine HCL 500 MCG/5 ML (100MCG/ML) SYRINGE (J2370) As Ordered ONE (08:15)
[2020-08-21] MEDS ORDERED: METOCLOPRAMIDE INJ 10MG/2ML VIAL (J2765 PER 1) As Ordered ONE (08:15)
[2020-08-21] MEDS ORDERED: fentaNYL 250 MCG/5 ML INJECTION (J3010) As Ordered ONE (08:15)
[2020-08-21] MEDS ORDERED: SUGAMMADEX SODIUM 500 MG/5 ML VIAL (BRIDION) As Ordered ONE (08:15)
[2020-08-21] MEDS ORDERED: DESFLURANE 240 ML INHALANT As Ordered ONE ×2 (08:15→10:16)
[2020-08-21] MEDS ORDERED: propofoL 200 MG/20 ML VIAL As Ordered ONE (08:15)
[2020-08-21] MEDS ORDERED: ROCURONIUM BROMIDE 50 MG/5 ML VIAL As Ordered ONE (08:15)
[2020-08-21] MEDS ORDERED: LIDOCAINE 2% 100MG/5ML SDV (FOR ANES.) As Ordered ONE (08:15)
[2020-08-21] MEDS ORDERED: dexameTHASONE 4 MG/ML 1ML VIAL (J1100 PER 1MG) As Ordered ONE (08:15)
[2020-08-21] MEDS ORDERED: ONDANSETRON 4MG/2ML VIAL As Ordered ONE (08:15)
[2020-08-21] MEDS ORDERED: ePHEDrine SULFATE 25 MG/5 ML(5MG/ML) SYRINGE As Ordered ONE (08:16)
[2020-08-21] MEDS ORDERED: ACETAMINOPHEN 1000MG 100ML IV BTL (OFIRMEV) (J0131 PER 10MG) As Ordered ONE (09:28)
[2020-08-21] MEDS ORDERED: ONDANSETRON 4MG/2ML VIAL IV PRN ×2 (12:15→13:00)
[2020-08-21] MEDS ORDERED: NORCO, ANEXSIA 5/325MG TABLET (HYDROcodone/ACETAMINOPHEN) PO PRN (12:15)
[2020-08-21] MEDS ORDERED: MORPHINE 2 MG/ML 1ML VIAL (J2270) IV PRN (12:15)
[2020-08-21] MEDS ORDERED: KETOROLAC 30 MG/ML 1ML VIAL IV PRN (12:15)
[2020-08-21] MEDS ORDERED: oxyCODONE 5MG TAB PO PRN (13:00)
[2020-08-21] MEDS ORDERED: fentaNYL 100 MCG/2 ML INJECTION (J3010) IV PRN (13:00)
[2020-08-21] MEDS ORDERED: METOCLOPRAMIDE INJ 10MG/2ML VIAL (J2765 PER 1) IV PRN (13:00)
[2020-08-21] MEDS ORDERED: MEPERIDINE INJ 25 MG/ML VIAL (J2175) IV PRN (13:00)
[2020-08-21] MEDS ORDERED: METH1TAB40 PO (15:00)
[2020-08-21] MEDS: LR 1,000 ML IV SCH (15:23)
[2020-08-21] MEDS: POTASSIUM CHLORIDE 10 MEQ SR TABLET PO SCH (15:23)
[2020-08-21] MEDS: GABAPENTIN 100 MG CAP PO SCH ×2 (16:00→20:01)
[2020-08-21] MEDS ORDERED: methocarbamoL 500 MG TAB PO PRN (16:00)
[2020-08-21] MEDS ORDERED: GABAPENTIN 100 MG CAP PO SCH (16:00)
[2020-08-21] MEDS ORDERED: cefoTEtan DISODIUM 1 GM in D5W MINI-BAG PLUS 50 ML IV ONE (19:30)
[2020-08-21] MEDS: DULoxetine 30 MG CAP (CYMBALTA) PO SCH (20:02)
[2020-08-21] MEDS: FAMOTIDINE 20 MG TAB PO SCH (20:02)
[2020-08-21] MEDS: COSOPT OCUMETER PLUS 10ML (DORZOLAMIDE/TIMOLOL) OU SCH (20:02)
[2020-08-21] MEDS: FLUTICASONE PROP 0.05% NASAL SPRAY 16 GM (FLONASE) SCH (20:02)
[2020-08-21] MEDS: RESTASIS OU SCH (21:00)
[2020-08-21] MEDS: ENOXAPARIN 40MG/0.4ML SYRINGE (J1650 PER 10MG) SC SCH (21:52)
[2020-08-21] MEDS: ACETAMINOPHEN TAB 650MG DOSE (2X325MG) PO PRN (21:52)
[2020-08-22 02:00] VITALS: BP 103/55
[2020-08-22] MEDS: LR 1,000 ML IV SCH (02:39)
[2020-08-22 06:00] VITALS: BP 100/54
[2020-08-22 07:08] LABS: BASO % 0.4 % (0.0-1.0); EOS % 0.2 % (0.0-3.0); HEMOGLOBIN 10.2 g/dl (12.0-15.5); LYMPH # 1.9 10^3/uL (1.5-5.0); LYMPH % 22.5 % (24.0-44.0); MEAN CORPUSCULAR HEMOGLOBIN 30.1 pg (27.0-33.0); MEAN CORPUSCULAR HGB CONC 32.9 g/dl (32.0-36.5); MEAN CORPUSCULAR VOLUME 91.4 fl (80.0-96.0); MONO # 0.8 10^3/uL (0.0-0.8); MONO % 9.9 % (0.0-5.0); NEUTROPHILS # 5.7 10^3/uL (1.5-8.5); NEUTROPHILS % 66.6 % (36.0-66.0); PLATELET COUNT, AUTOMATED 198 10^3/uL (150-450); RED BLOOD COUNT 3.39 10^6/uL (4.00-5.40); WHITE BLOOD COUNT 8.5 10^3/uL (4.0-10.0)
[2020-08-22 08:13] LABS: CALCIUM LEVEL 8.2 MG/DL (8.8-10.2); CREATININE FOR GFR 1.02 MG/DL (0.55-1.30); GLOMERULAR FILTRATION RATE 55.2 (>32); POTASSIUM SERUM 2.9 MEQ/L (3.5-5.1)
[2020-08-22] MEDS ORDERED: methocarbamoL 750 MG TAB PO SCH (09:00)
[2020-08-22] MEDS: GABAPENTIN 100 MG CAP PO SCH ×3 (09:22→20:36)
[2020-08-22] MEDS: COSOPT OCUMETER PLUS 10ML (DORZOLAMIDE/TIMOLOL) OU SCH ×2 (09:22→20:37)
[2020-08-22] MEDS: FAMOTIDINE 20 MG TAB PO SCH ×2 (09:22→20:36)
[2020-08-22] MEDS: hydroCHLOROthiazide 25 MG TAB PO SCH (09:22)
[2020-08-22] MEDS: DULoxetine 30 MG CAP (CYMBALTA) PO SCH ×2 (09:22→20:36)
[2020-08-22] MEDS: POTASSIUM CHLORIDE 10 MEQ SR TABLET PO SCH ×3 (09:22→14:59)
[2020-08-22 10:00] VITALS: BP 109/56
[2020-08-22] MEDS: RESTASIS OU SCH ×2 (10:11→20:38)
[2020-08-22 14:00] VITALS: BP 119/59
[2020-08-22] MEDS ORDERED: PNEUMOCOCCAL VACCINE 0.5ML SYRINGE (PNEUMOVAX 23) IM ONE (14:00)
[2020-08-22 18:00] VITALS: BP 133/65
[2020-08-22] MEDS: ACETAMINOPHEN TAB 650MG DOSE (2X325MG) PO PRN (20:36)
[2020-08-22] MEDS: ENOXAPARIN 40MG/0.4ML SYRINGE (J1650 PER 10MG) SC SCH (20:37)
[2020-08-22] MEDS: FLUTICASONE PROP 0.05% NASAL SPRAY 16 GM (FLONASE) SCH (20:38)
[2020-08-22 22:00] VITALS: BP 122/56
[2020-08-23 02:00] VITALS: BP 108/50
[2020-08-23 06:00] VITALS: BP 122/57
[2020-08-23 08:07] LABS: BLOOD UREA NITROGEN 19 MG/DL (7-18); CALCIUM LEVEL 8.5 MG/DL (8.8-10.2); CARBON DIOXIDE LEVEL 34 MEQ/L (21-32); CHLORIDE LEVEL 106 MEQ/L (98-107); CREATININE FOR GFR 0.71 MG/DL (0.55-1.30); GLOMERULAR FILTRATION RATE > 60.0 (>32); GLUCOSE, FASTING 92 MG/DL (70-100); POTASSIUM SERUM 3.8 MEQ/L (3.5-5.1); SODIUM LEVEL 143 MEQ/L (136-145)
--- NOTE | 2020-08-23 08:34 | IPNPDOC ---
Text Note Date of Service The patient was seen on 08/23/20. NOTE No acute events overnight. She is tolerating diet. No problems with nausea, emesis, fevers, or pain. She is ambulating around the room on her own and is passing gas. No BM yet. VSSAF NAD abd - soft, nd, TTP appropriate, incisions c/d/i labs - below A) 84y/o female s/p robotic rt hemicolectomy P) reg diet amb in halls d/c IV pain meds d/c home after a BM Roel Olmstead DO VS,Fishbone, I+O VS, Fishbone, I+O Laboratory Tests 08/23/20 06:41 Vital Signs Date Time Temp Pulse Resp B/P (MAP) Pulse Ox O2 Delivery O2 Flow Rate FiO2 08/23/20 06:00 96.9 82 19 122/57 (78) 93 Nasal Cannula 2.0 08/21/20 13:42 80 I&O- Last 24 Hours up to 6 AM 08/23/20 05:59 Intake Total 1740 ml Output Total 800 ml Balance 940 ml DIONISIO OLMSTEAD DO Aug 23, 2020 08:33
[2020-08-23] MEDS: GABAPENTIN 100 MG CAP PO SCH ×3 (09:39→20:42)
[2020-08-23] MEDS: FAMOTIDINE 20 MG TAB PO SCH ×2 (09:39→20:42)
[2020-08-23] MEDS: hydroCHLOROthiazide 25 MG TAB PO SCH (09:41)
[2020-08-23] MEDS: COSOPT OCUMETER PLUS 10ML (DORZOLAMIDE/TIMOLOL) OU SCH ×2 (09:42→20:27)
[2020-08-23] MEDS: DULoxetine 30 MG CAP (CYMBALTA) PO SCH ×2 (09:42→20:42)
[2020-08-23] MEDS: POTASSIUM CHLORIDE 10 MEQ SR TABLET PO SCH (09:42)
[2020-08-23] MEDS: RESTASIS OU SCH ×2 (09:42→20:42)
[2020-08-23] MEDS: ACETAMINOPHEN TAB 650MG DOSE (2X325MG) PO PRN ×2 (09:43→20:42)
[2020-08-23 14:37] VITALS: BP 121/59
[2020-08-23 20:00] VITALS: BP 159/79
[2020-08-23] MEDS: ENOXAPARIN 40MG/0.4ML SYRINGE (J1650 PER 10MG) SC SCH (20:28)
[2020-08-23] MEDS: FLUTICASONE PROP 0.05% NASAL SPRAY 16 GM (FLONASE) SCH (20:28)
[2020-08-23 22:00] VITALS: BP 159/79
[2020-08-24 06:00] VITALS: BP 161/80
[2020-08-24] MEDS ORDERED: HYDR-3715 PO (07:14)
[2020-08-24] MEDS: RESTASIS OU SCH (08:43)
[2020-08-24] MEDS: COSOPT OCUMETER PLUS 10ML (DORZOLAMIDE/TIMOLOL) OU SCH (08:44)
[2020-08-24] MEDS: GABAPENTIN 100 MG CAP PO SCH (08:44)
[2020-08-24] MEDS: hydroCHLOROthiazide 25 MG TAB PO SCH (08:44)
[2020-08-24] MEDS: DULoxetine 30 MG CAP (CYMBALTA) PO SCH (08:44)
[2020-08-24] MEDS: FAMOTIDINE 20 MG TAB PO SCH (08:44)
[2020-08-24] MEDS: POTASSIUM CHLORIDE 10 MEQ SR TABLET PO SCH (08:44)
--- NOTE | 2020-08-24 16:38 | RO ---
DATE OF OPERATION: 08/21/2020 PREOPERATIVE DIAGNOSIS: Nonendoscopically resectable cecal adenoma. POSTOPERATIVE DIAGNOSIS: Nonendoscopically resectable cecal adenoma and extensive right upper quadrant adhesions. PROCEDURE PERFORMED: Robotic-assisted laparoscopic right hemicolectomy with ileal to transverse colon anastomosis and extensive lysis of adhesions. SURGEON: Heath Arciniega MD BESSEMER CONVERTER OPERATOR: Negro Valdez MD SECOND SPA SUPERVISOR: GRADY Hill Dr. was essential for assisting in delivery of the specimen with performance of the anastomosis. Fatemeh Dee was essential for management of the robotic instrumentation with change of instruments, adjustment of the robotic equipment as necessary. ANESTHESIA: General. INDICATIONS FOR THE PROCEDURE: The patient is an 84-year-old woman who underwent a colonoscopy and was found to have a polyp in the cecum which was not endoscopically resectable. Biopsies revealed fragments of villous adenoma. She is now for a robotic-assisted laparoscopic right hemicolectomy. DESCRIPTION OF OPERATIVE PROCEDURE: The patient was brought to the operating room and placed on the table in a supine position. She was placed under general endotracheal anesthesia. TEDs and sequentials were applied. A Neri catheter was inserted. The patient's abdomen was prepped and draped in a sterile fashion. Initial entry was in the left upper quadrant of the abdomen. It was noted that the patient had a right subcostal scar from a previous open cholecystectomy. 25% Marcaine was infiltrated at each of the trocar sites as needed. A short incision was made and a Veress needle was inserted. After positive hanging drop test, the abdomen was inflated with CO2 gas. An 8 mm robotic port was placed over the scope and advanced through the abdominal wall without difficulty. Initial examination showed no evidence of trocar injury. There were extensive adhesions in the mid epigastrium and extending into the right upper quadrant. There were also adhesions in the mid and left lower portions of the abdomen involving some of the omentum adherent to the anterior abdominal wall. It was possible to place a second 8 mm port approximately 8-10 cm inferior and medial to the initial port. A pair of cauterizing scissors was then inserted and used to take down adhesions along the midline and extending slightly into the right upper quadrant. I also lysed some of the adhesions in the lower midline to expose the areas for placement of the additional robotic ports. After this had been accomplished, a short midline incision was made just below the umbilicus and a 12 mm port was placed. A final 8 mm port was placed in the right lower quadrant. The patient was tilted slightly to the left. The patient's cart of the da Crystal Xi was brought into position and the endoscope arm was attached to the left upper quadrant lower [address] in the area of the hepatic flexure and the additional robotic arms were then docked. A fenestrated bipolar was placed in the 12 mm port. The right lower quadrant port received a grasping retractor and the SynchroSeal was placed in the high left upper quadrant port. I then moved to the control console to begin the procedure. Initially the SynchroSeal was used to take down the adhesions working across the entire mid and upper abdomen into the right upper quadrant. There were also adhesions along the anterior aspect of the ascending colon attaching this to the anterior abdominal wall, and these were lysed. The terminal ileum was identified and there were some bands of attachment lateral and inferior precluding significant mobility in the terminal ileum. These were initially partially lysed. The appendix was identified and freed from the retroperitoneum and elevated. I then moved to address the hepatic flexure. There were extensive adhesions of the hepatic flexure to the undersurface of the liver and the gallbladder bed. There were some adhesions within the omentum overlying the transverse colon. The SynchroSeal was used to dissect the omentum away from the proximal most transverse colon. Dissection was then carried around the superior aspect of the proximal transverse colon and the hepatic flexure, freeing these from the liver and then the lateral abdominal wall. After this area had been freed, I returned to the dissection of the terminal ileum. The patient was rolled additionally to the left and placed into a Trendelenburg position to move the small bowel out of the area of dissection. It was then possible to further identify some attaches at the lateral aspect of the terminal ileum and free these and at this point the terminal ileum became quite mobile. An opening was created through the mesentery of the terminal ileum and the terminal ileum was transected with a single firing of the robotic 45 mm stapler with a blue load. The mesentery of the terminal ileum was dissected down to its base. The ileocolic artery was identified and dissection was carried superiorly slightly dividing the vessels with the SynchroSeal. The cecum was then grasped and elevated and the posterior and lateral attachments of the cecum were completed. The proximal transverse colon was then also divided with a firing of the 45 mm stapler after creating an opening through the transverse colon mesentery. The mesentery was then divided down to its base. The retroperitoneal duodenum was clearly identified and protected. The right colon mesentery was then peeled away from the retroperitoneum protecting the duodenum. The right ureter was also identified and protected. The medial division of the ascending colon mesentery was completed. It then remained only to free the lateral attachments of the ascending colon and the specimen was completely freed. This was left sitting in the right upper quadrant. There was no evidence of any significant bleeding. The terminal ileum would clearly reach to the midline. Some additional dissection of attachments at the mid to distal transverse colon freed this so that this would also come to the infraumbilical incision site. After ensuring that there was no evidence of any significant bleeding, the abdomen was deflated. Dr. Valdez joined oh in the operating room. The 12 mm port was removed and a midline infraumbilical incision approximately 5 cm in length was made. This was deepened through the fascia and the muscles were spread and the peritoneum opened. A small Brown retractor was inserted. The specimen was removed through this and set aside. The end of the terminal ileum and the transverse colon were then brought through the retractor. A stapled anastomosis was performed with a linear cutter 55 with a blue load and TX60G stapler to complete the anastomosis. Care was taken to align the bowel carefully without any rotation. Several reinforcing sutures of 3-0 Vicryl were placed. The anastomosis was then washed and reduced into the abdomen. At this point I opened the specimen. The polyp was clearly identified within the cecum and was approximately 2.5 to 3.0 cm in diameter. This was sent for permanent pathology. The Brown retractor was removed. The surgical team changed gown and gloves. The peritoneum was closed with a running suture of #1 Vicryl. Fascia was then closed with interrupted simple sutures of #1 Vicryl. The wound was irrigated. The abdomen was reinflated and a hand-held laparoscope was inserted. The anastomosis was identified in the right mid abdomen. There was no evidence of any bleeding. The abdomen was then deflated after returning the patient to a flat position and the remaining trocars were removed. The skin incisions were then all closed with buried 4-0 Vicryl and Steri-Strips. Light dressings were applied. The patient tolerated the procedure well without apparent complication. Her Neri catheter was removed. She was awakened in the operating room, extubated and moved to the recovery room in stable condition. MARY JANE
--- NOTE | 2020-08-24 16:46 | IPN ---
DATE: 08/22/2020 HISTORY: The patient is postop day one from a robotic assisted laparoscopic right hemicolectomy for a non endoscopically resectable polyp of the cecum. She had fairly extensive adhesions in the right upper quadrant from a previous open cholecystectomy. She has seemingly done well overnight and tolerated clear liquids well. She is having little discomfort and has taken nothing for pain since yesterday afternoon. Vital signs show that she has been afebrile with a pulse in the 50s and 60s and a good blood pressure. Intake and output show that she had 4,500 mL in yesterday, 960 of which was oral. She has a recorded urine output of 150. She did have one unmeasured void. PHYSICAL EXAMINATION: GENERAL APPEARANCE: The patient is sitting up in the bed and is alert and oriented. She appears quite comfortable and in good spirits. She denies any nausea or vomiting. HEART: Regular rhythm. LUNGS: Clear. ABDOMEN: Active bowel sounds and the abdomen is mildly distended but soft and without any undue tenderness. LABORATORY STUDIES: CBC showing a white count of 8, hemoglobin 10, hematocrit 31 and a platelet count of 198,000. Differential count shows 67% neutrophils and 22% lymphocytes. Chemistry profile shows her potassium is decreased at 2.9 and the labs are otherwise unremarkable. IMPRESSION: The patient is doing very well one day postop from her robotic assisted right hemicolectomy. Her pathology is pending. Her potassium is low today. PLAN: 1. The patient will be receive two 40 mEq doses of potassium today and will recheck BMP in the morning. 2. She will be advanced to a regular diet today and her IV has been saline locked. 3. She is encouraged to be up out of bed. 4. I anticipate she will be ready for discharge tomorrow or the next day. MARY JANE
== END 2020-08-24 10:41 | disposition home or self-care (01) | DRG 331 ==
LOC: M OR 05:58 → M MSPAV 14:16
PROVIDERS: ADMIT Surgery; ATTEND Surgery
PROC: 0DNL4ZZ Release Transverse Colon, Percutaneous Endoscopic Approach (ICD-10-PCS; 2020-08-21)
PROC: 0DBF4ZZ Excision of Right Large Intestine, Percutaneous Endoscopic Approach (ICD-10-PCS; principal; 2020-08-21 07:30)
DX: D12.0 Benign neoplasm of cecum (principal); I10 Essential (primary) hypertension; K21.9 Gastro-esophageal reflux disease without esophagitis; F41.1 Generalized anxiety disorder; H40.9 Unspecified glaucoma; R25.1 Tremor, unspecified; K66.0 Peritoneal adhesions (postprocedural) (postinfection); H91.93 Unspecified hearing loss, bilateral; M54.5 Low back pain; E78.5 Hyperlipidemia, unspecified; G25.81 Restless legs syndrome; G60.9 Hereditary and idiopathic neuropathy, unspecified; Z88.6 Allergy status to analgesic agent; Z88.8 Allergy status to other drugs, medicaments and biological substances; Z79.899 Other long term (current) drug therapy

== ENCOUNTER → 2020-12-31 | Outpatient (REF) | payer MEDICARE, OTHER ==
[~2020-12-31] MED LIST changes: +HYDR-3490 PO; +HYDR-3715 PO; -HYDR25TAB PO; -MELA3TAB63 PO; +MELA3TAB70 PO; +METH-1164 PO; +METR-265; +NAPR-849 PO; -NAPR250T4 PO; +NEOM500T; +SUPRSOL2
== END ==
LOC: M LAB REF 12:16
PROVIDERS: ATTEND Physician Assistant Medical
DX: N39.0 Urinary tract infection, site not specified (principal)

== ENCOUNTER → 2021-03-11 | Outpatient (REF) | payer MEDICARE, OTHER ==
[2021-03-11 17:06] LABS: C REACTIVE PROTEIN QUANTITATIV < 0.30 MG/DL (0.00-0.30)
[2021-03-11 17:18] LABS: VITAMIN B12 LEVEL 1037 PG/ML
[2021-03-11 17:19] LABS: FOLATE > 24.0 NG/ML
== END ==
LOC: M LAB REF 16:14
PROVIDERS: ATTEND Family Medicine
DX: R35.0 Frequency of micturition (principal); M54.5 Low back pain; R41.3 Other amnesia; R53.83 Other fatigue

== ENCOUNTER → 2021-04-28 | Outpatient (CLI) | payer MEDICARE, OTHER ==
[2021-04-28 12:50] LABS: PLATELET COUNT, AUTOMATED 268 10^3/uL (150-450)
[2021-04-28 13:01] LABS: INR 0.95; PARTIAL THROMBOPLASTIN TIME 24.4 SECONDS (24.2-38.5); PROTHROMBIN TIME 12.9 SECONDS (12.5-14.3)
== END ==
LOC: M LAB 11:47
PROVIDERS: ATTEND Physician Assistant
DX: M47.26 Other spondylosis with radiculopathy, lumbar region (principal)

== ENCOUNTER → 2021-09-02 | Outpatient (CLI) | payer MEDICARE, OTHER ==
--- NOTE | 2021-09-02 13:46 | REPMRS ---
Patient History The patient states she has not had a clinical breast exam in over a year. Family history of unknown cancer at age 50 or over and prostate cancer at age 50 or over in brother. Tomosynthesis is performed. Volpara breast density is b. Tyrer-zick lifetime risk of breast cancer 0.6%. Patient states no breast complaints today. Patient has signed MRS History Sheet. Digital Woman Screen Mammo: September 02, 2021 - Exam #: [id number] Bilateral CC and MLO view(s) were taken. Technologist: Rhiannon Diaz, Technologist Prior study comparison: August 12, 2020, bilateral digital woman screen mammo performed at [facility]. March 16, 2019, bilateral digital woman screen mammo performed at [facility]. FINDINGS: The breast tissue is heterogeneously dense. This may lower the sensitivity of mammography. There has been no change in the appearance of the mammogram from the prior studies. There is a moderate amount of residual fibroglandular tissue which is fairly symmetric. There is no interval development of dominant mass, areas of architectural distortion, or clustered microcalcification typical of malignancy. Assessment: BI-RADS/ACR category 1 mammogram. Negative Mammogram. Recommendation Routine screening mammogram in 1 year (for women over age 40). This mammogram was interpreted with the aid of an FDA-approved computer-aided dectection system. Electronically Signed By: Sav Negrete MD 09/02/21 [id number]
== END ==
LOC: M WHC 11:47
PROVIDERS: ATTEND Obstetrics & Gynecology
DX: Z12.31 Encounter for screening mammogram for malignant neoplasm of breast (principal)

== ENCOUNTER → 2022-02-09 | Outpatient (REF) | payer MEDICARE, OTHER ==
[~2022-02-09] MED LIST changes: -D31000TA2 PO; +VITA100093 PO
== END ==
LOC: M LAB REF 20:34
PROVIDERS: ATTEND Student in an Organized Health Care Education/Training Program
DX: R30.0 Dysuria (principal)

== ENCOUNTER → 2022-04-29 | Outpatient (CLI) | payer MEDICARE, OTHER | LOC: M WUC 14:34 | PROVIDERS: ATTEND Physician Assistant Medical | DX: R22.0 Localized swelling, mass and lump, head (principal) ==

== ENCOUNTER 2022-04-30 16:45 | Emergency (ER) | payer MEDICARE, OTHER ==
[~2022-04-30] VITALS: Ht 170.2 cm; Wt 57.2 kg
[2022-04-30 16:47] VITALS: BP 189/92
== END 2022-04-30 16:47 | disposition left against medical advice (07) ==
LOC: M ED 16:45
DX: Z53.29 Procedure and treatment not carried out because of patient's decision for other reasons (principal)

== ENCOUNTER → 2022-06-02 | Outpatient (REF) | payer MEDICARE, OTHER | LOC: M LAB REF 16:10 | PROVIDERS: ATTEND Family Medicine | DX: H53.2 Diplopia (principal) ==

== ENCOUNTER → 2022-06-17 | Outpatient (REF) | payer MEDICARE, OTHER | LOC: M LAB REF 13:44 | PROVIDERS: ATTEND Family Medicine | DX: H53.2 Diplopia (principal) ==

== ENCOUNTER → 2022-09-10 | Outpatient (CLI) | payer MEDICARE, OTHER | LOC: M WHC 13:10 | PROVIDERS: ATTEND Family Medicine | DX: R92.2 Inconclusive mammogram (principal) ==

== ENCOUNTER → 2022-09-20 | Outpatient (REF) | payer OTHER, MEDICARE | LOC: M LAB REF 20:31 | PROVIDERS: ATTEND Student in an Organized Health Care Education/Training Program | DX: R30.0 Dysuria (principal) ==

== ENCOUNTER → 2022-09-21 | Outpatient (CLI) | payer MEDICARE, OTHER | LOC: M WHC 11:18 | PROVIDERS: ATTEND Family Medicine | DX: R92.8 Other abnormal and inconclusive findings on diagnostic imaging of breast (principal) | CPT/HCPCS: 77065; G0279 ==

== ENCOUNTER → 2022-09-29 | Outpatient (REF) | payer MEDICARE, OTHER ==
[2022-09-29 19:20] LABS: APPEARANCE, URINE MANUAL CLEAR (CLEAR); COLOR, URINE MANUAL YELLOW (YELLOW)
[2022-09-29 19:21] LABS: BILIRUBIN, URINE MANUAL NEGATIVE (NEGATIVE); BLOOD URINE MANUAL NEGATIVE (NEGATIVE); GLUCOSE, URINE (UA) MANUAL NEGATIVE (NEGATIVE); KETONE, URINE MANUAL NEGATIVE (NEGATIVE); NITRITE, URINE MANUAL NEGATIVE (NEGATIVE); PROTEIN, URINE MANUAL NEGATIVE (NEGATIVE); SPECIFIC GRAVITY,URINE MANUAL 1.015 (1.002-1.035); UROBILINOGEN, URINE MANUAL NORMAL (NORMAL)
[2022-09-29 19:22] LABS: LEUKOCYTE ESTERASE, URINE MAN TRACE (NEGATIVE)
[2022-09-29 21:23] LABS: BACTERIA, URINE NONE SEEN; HYALINE CAST, URINE NONE SEEN /lpf (0-1); RBC, URINE NONE SEEN /hpf (0-3); SQUAMOUS EPITHELIAL CELL URINE NONE SEEN /hpf (SMALL AMT)
== END ==
LOC: M SMT 17:23
PROVIDERS: ATTEND Nurse Practitioner Women's Health
DX: N39.0 Urinary tract infection, site not specified (principal)

== ENCOUNTER → 2023-03-09 | Outpatient (REF) | payer MEDICARE, OTHER ==
[~2023-03-09] MED LIST changes: +FLUT50SP17; -FLUTISP
[2023-03-09 17:29] LABS: APPEARANCE, URINE CLEAR (CLEAR); BACTERIA, URINE AUTO NEGATIVE (NEGATIVE); BILIRUBIN, URINE AUTO NEGATIVE (NEGATIVE); BLOOD, URINE BLOOD NEGATIVE (NEGATIVE); COLOR, URINE YELLOW (YELLOW); GLUCOSE, URINE (UA) AUTO NEGATIVE (NEGATIVE); KETONE, URINE AUTO NEGATIVE (NEGATIVE); LEUKOCYTE ESTERASE, URINE AUTO NEGATIVE (NEGATIVE); MUCUS, URINE SMALL (NEGATIVE); NITRITE, URINE AUTO NEGATIVE (NEGATIVE); PROTEIN, URINE AUTO NEGATIVE (NEGATIVE); RBC, URINE AUTO 0 /HPF (0-3); SPECIFIC GRAVITY URINE AUTO 1.018 (1.002-1.035); SQUAMOUS EPITHELIAL CELL UR AU 0 /HPF (0-6); UROBILINOGEN, URINE AUTO 0.2 mg/dL (0.0-2.0); WBC, URINE AUTO 1 /HPF (0-3)
== END ==
LOC: M SMT 16:39
PROVIDERS: ATTEND Physician Assistant
DX: N32.81 Overactive bladder (principal); Z79.899 Other long term (current) drug therapy

== ENCOUNTER → 2023-06-24 | Outpatient (REF) | payer MEDICARE, OTHER ==
[~2023-06-24] MED LIST changes: -ROPI0.5T3 PO; +ROPI0.5T33 PO
[2023-06-24 13:50] LABS: IONIZED CALCIUM 5.4 MG/DL (4.5-5.3)
[2023-06-25 10:05] LABS: PTH INTACT 82.6 PG/ML (18.5-88.0)
== END ==
LOC: M LAB REF 13:34
PROVIDERS: ATTEND Family Medicine
DX: R19.4 Change in bowel habit (principal); E83.52 Hypercalcemia

== ENCOUNTER → 2023-09-20 | Outpatient (REF) | payer MEDICARE, OTHER ==
[~2023-09-20] MED LIST changes: -FLUT50SP17; +FLUTISP
== END ==
LOC: M LAB REF 16:05
PROVIDERS: ATTEND Family Medicine
DX: E83.52 Hypercalcemia (principal)

== ENCOUNTER → 2023-10-20 | Outpatient (CLI) | payer MEDICARE, OTHER | LOC: M WHC 15:15 | PROVIDERS: ATTEND Family Medicine | DX: Z12.31 Encounter for screening mammogram for malignant neoplasm of breast (principal) ==

== ENCOUNTER 2023-12-21 10:39 | Day surgery (SDC) | payer MEDICARE, OTHER ==
[~2023-12-21] VITALS: Ht 162.6 cm; Wt 49.5 kg
[~2023-12-21 10:39] MED LIST changes: +B-12100010 PO; +BIMA01SOL OU; +MULT-90 PO; +OMEGCAP4 PO; +OMEP40CA5 PO; +[UNRECOGNIZED DRUG - OTHER]
[2023-12-21] MEDS: NS 1,000 ML IV ONE (11:03)
[2023-12-21] MEDS ORDERED: LIDOCAINE 2% 100MG/5ML SDV (FOR ANES.) As Ordered ONE (11:49)
[2023-12-21] MEDS ORDERED: ONDANSETRON 4MG 2ML VIAL As Ordered ONE (11:49)
[2023-12-21] MEDS ORDERED: propofoL 200 MG/20 ML VIAL As Ordered ONE (11:49)
[2023-12-21 12:31] VITALS: TEMP 96.8
[2023-12-21 12:47] VITALS: BP 119/62; O2SAT 99
== END 2023-12-21 12:59 | disposition home or self-care (01) ==
LOC: M OPP 10:39
PROVIDERS: ATTEND Internal Medicine Gastroenterology
DX: Z12.11 Encounter for screening for malignant neoplasm of colon (principal); Z86.010 Personal history of colon polyps; K64.0 First degree hemorrhoids; Z98.0 Intestinal bypass and anastomosis status; K44.9 Diaphragmatic hernia without obstruction or gangrene; K31.89 Other diseases of stomach and duodenum; R13.10 Dysphagia, unspecified; R12 Heartburn; G47.9 Sleep disorder, unspecified; Z79.2 Long term (current) use of antibiotics; Z79.51 Long term (current) use of inhaled steroids; Z79.891 Long term (current) use of opiate analgesic; Z79.899 Other long term (current) drug therapy; Z88.1 Allergy status to other antibiotic agents; Z88.5 Allergy status to narcotic agent; Z88.8 Allergy status to other drugs, medicaments and biological substances
CPT/HCPCS: 43239; 88305; G0105; J2405

== ENCOUNTER → 2024-01-24 | Outpatient (REF) | payer MEDICARE, OTHER | LOC: M LAB REF 13:23 | PROVIDERS: ATTEND Family Medicine | DX: E83.52 Hypercalcemia (principal) ==

== ENCOUNTER → 2024-02-02 | Outpatient (CLI) | payer MEDICARE, OTHER | LOC: M WHC 14:31 | PROVIDERS: ATTEND Family Medicine | DX: E55.9 Vitamin D deficiency, unspecified (principal); M85.89 Other specified disorders of bone density and structure, multiple sites ==

== ENCOUNTER 2024-02-23 21:53 | Emergency (ER) | payer MEDICARE, OTHER ==
[~2024-02-23] VITALS: Ht 165.1 cm; Wt 70.5 kg
[2024-02-23 22:20] LABS: BASO # 0.1 10^3/uL (0.0-0.2); BASO % 0.8 % (0.0-1.0); EOS # 0.2 10^3/uL (0.0-0.5); HEMATOCRIT 37.4 % (36.0-47.0); HEMOGLOBIN 12.8 g/dl (12.0-15.5); LYMPH % 31.2 % (24.0-44.0); MEAN CORPUSCULAR HEMOGLOBIN 30.9 pg (27.0-33.0); MEAN CORPUSCULAR HGB CONC 34.2 g/dl (32.0-36.5); MEAN CORPUSCULAR VOLUME 90.3 fl (80.0-96.0); MONO # 0.7 10^3/uL (0.0-0.8); MONO % 10.4 % (2.0-8.0); NEUTROPHILS # 3.5 10^3/uL (1.5-8.5); NEUTROPHILS % 54.3 % (36.0-66.0); PLATELET COUNT, AUTOMATED 227 10^3/uL (150-450); RED BLOOD COUNT 4.14 10^6/uL (4.00-5.40); WHITE BLOOD COUNT 6.4 10^3/uL (4.0-10.0)
[2024-02-23 22:42] LABS: CK-MB VALUE MASS < 1.0 NG/ML (<3.6); LIPASE 58 U/L (12-53)
[2024-02-23 22:44] LABS: ALBUMIN 3.4 G/DL (3.2-5.2); ALKALINE PHOSPHATASE 78 U/L (46-116); ALT/SGPT 13 U/L (7.0-40); AST/SGOT 21 U/L (<34); BILIRUBIN,DIRECT 0.1 MG/DL (<0.4); BILIRUBIN,TOTAL 0.4 MG/DL (0.3-1.2); BLOOD UREA NITROGEN 24 MG/DL (9-23); CALCIUM LEVEL 9.7 MG/DL (8.3-10.6); CARBON DIOXIDE LEVEL 29 MMOL/L (20-31); CHLORIDE LEVEL 107 MMOL/L (98-107); CREATININE FOR GFR 0.71 MG/DL (0.55-1.30); GLOMERULAR FILTRATION RATE > 60.0 (>32); GLUCOSE, FASTING 104 MG/DL (74-106); POTASSIUM SERUM 3.9 MMOL/L (3.5-5.1); SODIUM LEVEL 142 MMOL/L (136-145); TOTAL PROTEIN 6.2 G/DL (5.7-8.2)
[2024-02-23 22:46] LABS: FREE T4 0.96 NG/DL (0.89-1.76); THYROID STIMULATING HORMONE 1.621 uIU/ML (0.55-4.78)
[2024-02-23 22:52] LABS: CPK CREATINE PHOSPHOKINASE 40 U/L (34-145)
[2024-02-23 23:52] LABS: CK-MB VALUE MASS < 1.0 NG/ML (<3.6)
[2024-02-23 23:54] LABS: CPK CREATINE PHOSPHOKINASE 37 U/L (34-145)
[2024-02-24 00:40] LABS: INR 1.08; PARTIAL THROMBOPLASTIN TIME 23.8 SECONDS (24.8-34.2); PROTHROMBIN TIME 13.7 SECONDS (12.5-14.5)
[2024-02-24] MEDS ORDERED: ISOVUE-370 76% 100ML VIAL As Ordered ONE (01:44)
[2024-02-24 02:51] VITALS: BP 141/67
[2024-02-24 03:50] VITALS: TEMP 98; O2SAT 99
== END 2024-02-24 03:58 | disposition home or self-care (01) ==
LOC: M ED 21:53 → EDBD 21:53 → M ED 02-24 03:58
DX: R07.9 Chest pain, unspecified (principal); I10 Essential (primary) hypertension; G60.9 Hereditary and idiopathic neuropathy, unspecified; Z79.899 Other long term (current) drug therapy; Z88.5 Allergy status to narcotic agent; Z88.8 Allergy status to other drugs, medicaments and biological substances
CPT/HCPCS: 71045; 71275; 80048; 80076; 82550; 82553; 83690; 84439; 84443; 84484; 85025; 85610; 85730; 93005; 93041; 94760; 99285; Q9967

== ENCOUNTER → 2024-02-28 | Outpatient (REF) | payer MEDICARE, OTHER | LOC: M LAB REF 16:40 | PROVIDERS: ATTEND Nurse Practitioner Family | DX: R53.83 Other fatigue (principal) ==

== ENCOUNTER 2024-08-17 18:36 | Emergency (ER) | payer MEDICARE, OTHER ==
[~2024-08-17] VITALS: Ht 162.6 cm; Wt 55.3 kg
[2024-08-17 20:00] LABS: VENOUS BASE EXCESS -0.2 (-2.0-2.0); VENOUS HCO3 25.4 MMOL/L (23.0-27.0); VENOUS O2 SATURATION 57.3 % (60.0-80.0); VENOUS PARTIAL PRESSURE CO2 45.2 mmHg (38.0-50.0); VENOUS PARTIAL PRESSURE O2 29.6 mmHg (30.0-50.0); VENOUS PH 7.368 UNITS (7.330-7.430); VENOUS STANDARD HCO3 23.4 MMOL/L; VENOUS TOTAL CO2 26.8 MMOL/L (24.0-28.0)
[2024-08-17 20:06] LABS: BASO % 0.2 % (0.0-1.0); EOS % 0.3 % (0.0-3.0); HEMATOCRIT 35.8 % (36.0-47.0); HEMOGLOBIN 12.6 g/dl (12.0-15.5); LYMPH # 1.3 10^3/uL (1.5-5.0); LYMPH % 10.2 % (24.0-44.0); MEAN CORPUSCULAR HEMOGLOBIN 30.7 pg (27.0-33.0); MEAN CORPUSCULAR HGB CONC 35.2 g/dl (32.0-36.5); MEAN CORPUSCULAR VOLUME 87.3 fl (80.0-96.0); MONO # 1.1 10^3/uL (0.0-0.8); MONO % 8.6 % (2.0-8.0); NEUTROPHILS # 10.1 10^3/uL (1.5-8.5); NEUTROPHILS % 80.4 % (36.0-66.0); PLATELET COUNT, AUTOMATED 294 10^3/uL (150-450); WHITE BLOOD COUNT 12.6 10^3/uL (4.0-10.0)
[2024-08-17 20:35] LABS: CPK CREATINE PHOSPHOKINASE 459 U/L (34-145)
[2024-08-17 20:36] LABS: ALBUMIN 3.7 G/DL (3.2-5.2); ALKALINE PHOSPHATASE 78 U/L (35-104); ALT/SGPT 17 U/L (7.0-40); AST/SGOT 32 U/L (<34); BILIRUBIN,DIRECT 0.5 MG/DL (<0.4); BILIRUBIN,TOTAL 1.5 MG/DL (0.3-1.2); BLOOD UREA NITROGEN 14 MG/DL (9-23); CALCIUM LEVEL 11.2 MG/DL (8.3-10.6); CARBON DIOXIDE LEVEL 29 MMOL/L (20-31); CHLORIDE LEVEL 106 MMOL/L (98-107); CREATININE FOR GFR 0.72 MG/DL (0.55-1.30); GLOMERULAR FILTRATION RATE > 60.0 (>32); GLUCOSE, FASTING 92 MG/DL (74-106); POTASSIUM SERUM 3.1 MMOL/L (3.5-5.1); SODIUM LEVEL 142 MMOL/L (136-145); TOTAL PROTEIN 6.6 G/DL (5.7-8.2)
[2024-08-17 22:36] VITALS: BP 150/74; TEMP 99.2; O2SAT 96
== END 2024-08-17 23:00 | disposition short-term general hospital (02) ==
LOC: EDBD 18:36 → M ED 18:36
DX: S06.6XAA Traumatic subarachnoid hemorrhage with loss of consciousness status unknown, initial encounter (principal); U07.1 COVID-19; W19.XXXA Unspecified fall, initial encounter; Y92.009 Unspecified place in unspecified non-institutional (private) residence as the place of occurrence of the external cause; Y93.9 Activity, unspecified; Y99.9 Unspecified external cause status; I10 Essential (primary) hypertension; K21.9 Gastro-esophageal reflux disease without esophagitis; K57.92 Diverticulitis of intestine, part unspecified, without perforation or abscess without bleeding; H40.9 Unspecified glaucoma; G62.9 Polyneuropathy, unspecified; M41.86 Other forms of scoliosis, lumbar region; M99.61 Osseous and subluxation stenosis of intervertebral foramina of cervical region; Z79.899 Other long term (current) drug therapy; Z88.8 Allergy status to other drugs, medicaments and biological substances; Z88.5 Allergy status to narcotic agent

== ENCOUNTER → 2024-08-22 | Outpatient (REF) ==
[2024-08-22 09:01] LABS: HEMATOCRIT 39.9 % (36.0-47.0); HEMOGLOBIN 13.2 g/dl (12.0-15.5); MEAN CORPUSCULAR HGB CONC 33.1 g/dl (32.0-36.5); MEAN CORPUSCULAR VOLUME 90.7 fl (80.0-96.0); PLATELET COUNT, AUTOMATED 301 10^3/uL (150-450); WHITE BLOOD COUNT 7.7 10^3/uL (4.0-10.0)
[2024-08-22 09:44] LABS: BLOOD UREA NITROGEN 20 MG/DL (9-23); CALCIUM LEVEL 9.8 MG/DL (8.3-10.6); CARBON DIOXIDE LEVEL 30 MMOL/L (20-31); CHLORIDE LEVEL 106 MMOL/L (98-107); GLOMERULAR FILTRATION RATE > 60.0 (>32); GLUCOSE, FASTING 108 MG/DL (74-106); POTASSIUM SERUM 3.8 MMOL/L (3.5-5.1); SODIUM LEVEL 141 MMOL/L (136-145)
== END ==
PROVIDERS: ATTEND Internal Medicine
DX: Z02.2 Encounter for examination for admission to residential institution (principal); Z79.899 Other long term (current) drug therapy

== ENCOUNTER → 2024-08-29 | Outpatient (REF) ==
[2024-08-29 11:15] LABS: HEMATOCRIT 36.1 % (36.0-47.0); HEMOGLOBIN 12.1 g/dl (12.0-15.5); MEAN CORPUSCULAR HEMOGLOBIN 30.6 pg (27.0-33.0); MEAN CORPUSCULAR HGB CONC 33.5 g/dl (32.0-36.5); MEAN CORPUSCULAR VOLUME 91.4 fl (80.0-96.0); PLATELET COUNT, AUTOMATED 280 10^3/uL (150-450); RED BLOOD COUNT 3.95 10^6/uL (4.00-5.40); WHITE BLOOD COUNT 9.8 10^3/uL (4.0-10.0)
[2024-08-29 11:43] LABS: BLOOD UREA NITROGEN 24 MG/DL (9-23); CALCIUM LEVEL 10.6 MG/DL (8.3-10.6); CARBON DIOXIDE LEVEL 28 MMOL/L (20-31); CHLORIDE LEVEL 107 MMOL/L (98-107); CREATININE FOR GFR 0.72 MG/DL (0.55-1.30); GLOMERULAR FILTRATION RATE > 60.0 (>32); GLUCOSE, FASTING 117 MG/DL (74-106); POTASSIUM SERUM 3.9 MMOL/L (3.5-5.1); SODIUM LEVEL 140 MMOL/L (136-145)
== END ==
PROVIDERS: ATTEND Internal Medicine
DX: Z02.2 Encounter for examination for admission to residential institution (principal); Z79.899 Other long term (current) drug therapy

== ENCOUNTER → 2024-09-14 | Outpatient (REF) ==
[2024-09-14 08:56] LABS: HEMOGLOBIN 12.7 g/dl (12.0-15.5); MEAN CORPUSCULAR HEMOGLOBIN 30.7 pg (27.0-33.0); MEAN CORPUSCULAR HGB CONC 33.4 g/dl (32.0-36.5); MEAN CORPUSCULAR VOLUME 91.8 fl (80.0-96.0); PLATELET COUNT, AUTOMATED 252 10^3/uL (150-450); RED BLOOD COUNT 4.14 10^6/uL (4.00-5.40); WHITE BLOOD COUNT 6.5 10^3/uL (4.0-10.0)
[2024-09-14 09:22] LABS: BLOOD UREA NITROGEN 25 MG/DL (9-23); CALCIUM LEVEL 10.9 MG/DL (8.3-10.6); CARBON DIOXIDE LEVEL 32 MMOL/L (20-31); CHLORIDE LEVEL 103 MMOL/L (98-107); CREATININE FOR GFR 0.72 MG/DL (0.55-1.30); GLOMERULAR FILTRATION RATE > 60.0 (>32); GLUCOSE, FASTING 89 MG/DL (74-106); SODIUM LEVEL 141 MMOL/L (136-145)
== END ==
PROVIDERS: ATTEND Internal Medicine
DX: Z51.89 Encounter for other specified aftercare (principal)

== ENCOUNTER 2024-10-08 10:22 | Emergency (ER) | payer MEDICARE, OTHER ==
[~2024-10-08] VITALS: Ht 172.7 cm; Wt 53.2 kg
[2024-10-08 11:19] LABS: VENOUS BASE EXCESS 4.2 (-2.0-2.0); VENOUS HCO3 30.6 MMOL/L (23.0-27.0); VENOUS O2 SATURATION 70.4 % (60.0-80.0); VENOUS PARTIAL PRESSURE CO2 53.2 mmHg (38.0-50.0); VENOUS PARTIAL PRESSURE O2 37.5 mmHg (30.0-50.0); VENOUS PH 7.378 UNITS (7.330-7.430); VENOUS STANDARD HCO3 27.6 MMOL/L; VENOUS TOTAL CO2 32.3 MMOL/L (24.0-28.0)
[2024-10-08 11:22] LABS: BASO % 0.7 % (0.0-1.0); EOS # 0.1 10^3/uL (0.0-0.5); EOS % 2.1 % (0.0-3.0); HEMATOCRIT 37.1 % (36.0-47.0); HEMOGLOBIN 12.6 g/dl (12.0-15.5); LYMPH # 1.3 10^3/uL (1.5-5.0); MEAN CORPUSCULAR HEMOGLOBIN 31.3 pg (27.0-33.0); MEAN CORPUSCULAR VOLUME 92.1 fl (80.0-96.0); MONO # 0.5 10^3/uL (0.0-0.8); MONO % 9.2 % (2.0-8.0); NEUTROPHILS # 3.8 10^3/uL (1.5-8.5); NEUTROPHILS % 65.8 % (36.0-66.0); PLATELET COUNT, AUTOMATED 214 10^3/uL (150-450); RED BLOOD COUNT 4.03 10^6/uL (4.00-5.40); WHITE BLOOD COUNT 5.8 10^3/uL (4.0-10.0)
[2024-10-08 11:32] LABS: KETONE, URINE AUTO RFX NEGATIVE (NEGATIVE); LEUKOCYTE ESTERASE UR AUTO RFX NEGATIVE (NEGATIVE)
[2024-10-08 11:44] LABS: CK-MB VALUE MASS 2.1 NG/ML (<3.6)
[2024-10-08 11:45] LABS: SALICYLATE LEVEL < 3.0 MG/DL (<30)
[2024-10-08 11:46] LABS: ETHYL ALCOHOL (ETHANOL) 0.007 % (0.000-0.010)
[2024-10-08 11:47] LABS: THYROID STIMULATING HORMONE 0.624 uIU/ML (0.55-4.78)
[2024-10-08 11:48] LABS: ALBUMIN 3.8 G/DL (3.2-5.2); ALKALINE PHOSPHATASE 77 U/L (35-104); ALT/SGPT 14 U/L (7.0-40); AST/SGOT 34 U/L (<34); BILIRUBIN,DIRECT 0.2 MG/DL (<0.4); BILIRUBIN,TOTAL 0.6 MG/DL (0.3-1.2); BLOOD UREA NITROGEN 15 MG/DL (9-23); CALCIUM LEVEL 10.7 MG/DL (8.3-10.6); CARBON DIOXIDE LEVEL 30 MMOL/L (20-31); CHLORIDE LEVEL 103 MMOL/L (98-107); CREATININE FOR GFR 0.69 MG/DL (0.55-1.30); GLOMERULAR FILTRATION RATE > 60.0 (>32); GLUCOSE, FASTING 104 MG/DL (74-106); POTASSIUM SERUM 4.6 MMOL/L (3.5-5.1); SODIUM LEVEL 142 MMOL/L (136-145); TOTAL PROTEIN 6.8 G/DL (5.7-8.2)
[2024-10-08 11:52] LABS: AMPHETAMINES LEVEL URINE NEGATIVE (NEGATIVE); BARBITURATES URINE NEGATIVE (NEGATIVE); BENZODIAZEPINES URINE NEGATIVE (NEGATIVE); CANNABINOIDS URINE NEGATIVE (NEGATIVE); COCAINE METABOLITE URINE NEGATIVE (NEGATIVE); METHADONE URINE NEGATIVE (NEGATIVE); OPIATES URINE NEGATIVE (NEGATIVE); PHENCYCLIDINE URINE NEGATIVE (NEGATIVE)
[2024-10-08 11:53] LABS: CPK CREATINE PHOSPHOKINASE 69 U/L (34-145); MB/CK RELATIVE INDEX 3.04 (< OR =4)
[2024-10-08 13:00] VITALS: BP 165/76; O2SAT 99
[2024-10-08 13:11] VITALS: TEMP 97.1
== END 2024-10-08 13:19 | disposition home or self-care (01) ==
LOC: EDBD 10:22 → M ED 10:22
DX: Z04.3 Encounter for examination and observation following other accident (principal); W19.XXXA Unspecified fall, initial encounter; Y92.9 Unspecified place or not applicable; Y93.89 Activity, other specified; Y99.9 Unspecified external cause status; I10 Essential (primary) hypertension; H40.9 Unspecified glaucoma; Z91.81 History of falling; Z87.820 Personal history of traumatic brain injury; Z87.01 Personal history of pneumonia (recurrent); Z79.899 Other long term (current) drug therapy; Z88.8 Allergy status to other drugs, medicaments and biological substances; Z88.5 Allergy status to narcotic agent

== ENCOUNTER → 2024-10-31 | Outpatient (REF) | payer MEDICARE, OTHER ==
[2024-10-31 16:00] LABS: BASO # 0.1 10^3/uL (0.0-0.2); BASO % 0.7 % (0.0-1.0); EOS # 0.1 10^3/uL (0.0-0.5); EOS % 1.7 % (0.0-3.0); HEMATOCRIT 39.4 % (36.0-47.0); HEMOGLOBIN 13.1 g/dl (12.0-15.5); LYMPH # 1.7 10^3/uL (1.5-5.0); LYMPH % 24.1 % (24.0-44.0); MEAN CORPUSCULAR HGB CONC 33.2 g/dl (32.0-36.5); MEAN CORPUSCULAR VOLUME 90.2 fl (80.0-96.0); MONO # 0.6 10^3/uL (0.0-0.8); NEUTROPHILS # 4.5 10^3/uL (1.5-8.5); NEUTROPHILS % 65.2 % (36.0-66.0); PLATELET COUNT, AUTOMATED 271 10^3/uL (150-450); RED BLOOD COUNT 4.37 10^6/uL (4.00-5.40)
[2024-10-31 16:32] LABS: ALBUMIN 3.8 G/DL (3.2-5.2); ALKALINE PHOSPHATASE 93 U/L (35-104); ALT/SGPT 16 U/L (7.0-40); AST/SGOT 22 U/L (<34); BILIRUBIN,TOTAL 0.8 MG/DL (0.3-1.2); BLOOD UREA NITROGEN 20 MG/DL (9-23); CALCIUM LEVEL 10.6 MG/DL (8.3-10.6); CARBON DIOXIDE LEVEL 32 MMOL/L (20-31); CHLORIDE LEVEL 101 MMOL/L (98-107); CREATININE FOR GFR 0.72 MG/DL (0.55-1.30); GLOMERULAR FILTRATION RATE > 60.0 (>32); GLUCOSE, FASTING 142 MG/DL (74-106); POTASSIUM SERUM 3.7 MMOL/L (3.5-5.1); SODIUM LEVEL 141 MMOL/L (136-145); THYROID STIMULATING HORMONE 0.693 uIU/ML (0.55-4.78); TOTAL PROTEIN 7.3 G/DL (5.7-8.2); VITAMIN B12 LEVEL 929 PG/ML (211-911)
== END ==
LOC: M LAB REF 14:50
PROVIDERS: ATTEND Family Medicine
DX: I10 Essential (primary) hypertension (principal); F41.1 Generalized anxiety disorder; D51.9 Vitamin B12 deficiency anemia, unspecified; E83.52 Hypercalcemia

== ENCOUNTER → 2024-11-07 | Outpatient (REF) | payer MEDICARE, OTHER ==
[2024-11-07 15:53] LABS: APPEARANCE, URINE CLEAR (CLEAR); BACTERIA, URINE AUTO NEGATIVE (NEGATIVE); BILIRUBIN, URINE AUTO NEGATIVE (NEGATIVE); BLOOD, URINE BLOOD NEGATIVE (NEGATIVE); COLOR, URINE YELLOW (YELLOW); GLUCOSE, URINE (UA) AUTO NEGATIVE (NEGATIVE); KETONE, URINE AUTO NEGATIVE (NEGATIVE); LEUKOCYTE ESTERASE, URINE AUTO NEGATIVE (NEGATIVE); MUCUS, URINE SMALL (NEGATIVE); NITRITE, URINE AUTO NEGATIVE (NEGATIVE); PROTEIN, URINE AUTO NEGATIVE (NEGATIVE); RBC, URINE AUTO 0 /HPF (0-3); SPECIFIC GRAVITY URINE AUTO 1.021 (1.002-1.035); SQUAMOUS EPITHELIAL CELL UR AU 0 /HPF (0-6); UROBILINOGEN, URINE AUTO 0.2 mg/dL (0.0-2.0); WBC, URINE AUTO 1 /HPF (0-3)
== END ==
LOC: M LAB REF 15:44
PROVIDERS: ATTEND Family Medicine
DX: R41.0 Disorientation, unspecified (principal)

== ENCOUNTER → 2025-04-15 | Outpatient (REF) | payer MEDICARE, OTHER ==
[~2025-04-15] MED LIST changes: +BACI1TAB4 PO; +OXYB10TA23 PO; +QUET1TAB17 PO; +SIMV40TA20 PO; +VIBE75TA PO
== END ==
LOC: M LAB REF 12:11
PROVIDERS: ATTEND Nurse Practitioner Family
DX: E83.52 Hypercalcemia (principal)

== ENCOUNTER → 2025-06-27 | Outpatient (CLI) | payer MEDICARE, OTHER | LOC: M RAD 13:43 | PROVIDERS: ATTEND Psychiatry & Neurology Neurology | DX: R26.9 Unspecified abnormalities of gait and mobility (principal) ==